=== PATIENT | female | born 1945 | race Caucasian/White ===

== ENCOUNTER 2023-12-15 12:23 | Emergency (ER) | payer MEDICARE, SELFPAY ==
[2023-12-15 12:34] VITALS: BP 158/71; PULSE 107; TEMP 36.8; O2SAT 87; BMI 20.4
[2023-12-15 12:49] VITALS: O2SAT 96
--- NOTE | 2023-12-15 13:21 | XR_ITS ---
The [address] [address] Patient Name: ALVAREZ PICKENS MRN: [id number] date: 1945 Sex: F Assigned Patient Location: ER Current Patient Location: ER Accession/Order Number: [id number] Exam Date: 12/15/2023 13:50 Report Date: 12/15/2023 14:18 At the request of: EDDIE COLE Procedure: XR abdomen 1V EXAMINATION: XR abdomen 1V HISTORY: Left-sided pain, possible constipation COMPARISON: No relevant comparison available. FINDINGS: BOWEL GAS PATTERN: Moderate to large amount stool throughout the bowel. No abnormal dilation or findings to suggest obstruction. Bowel sutures within right pelvis. CALCIFICATIONS: None significant. 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 Prior right hip replacement. XR/XR abdomen 1V IMPRESSION: 1. Moderate stool burden. No acute bowel findings. Electronically authenticated by: ARIANA AGUILAR Date: 12/15/2023 14:18
--- NOTE | 2023-12-15 13:22 | ED.ABDPAIN1 ---
HPI - Abdominal Pain General Chief Complaint: Abdominal Pain Stated Complaint: SIDE PAIN Time Seen by Provider: 12/15/23 12:35 Source: patient and family Mode of arrival: walk-in Limitations: no limitations History of Present Illness HPI narrative: 78-year-old female presented for pain in her abdomen. It is in the extreme left lateral area of the abdomen. She does not have any pain in the left lower quadrant or elsewhere on the abdomen. No trauma dysuria or hematuria. She states she has not had a bowel movement for 3 days. Related Data Home Medications ?Medication ?Instructions ?Recorded ?Confirmed No Known Home Medications 12/15/23 12/15/23 Allergies Allergy/AdvReac Type Severity Reaction Status Date / Time No Known Drug Allergies Allergy Verified 12/15/23 12:37 Review of Systems ROS Narrative A ten point review of systems is negative except as noted above. PFSH PFSH Social History Little interest or pleasure in doing things: not at all Feeling down, depressed, or hopeless: not at all Exam Narrative Exam Narrative: Nurses note and vital signs reviewed and patient is not hypoxic. General: The patient appears well and in no apparent distress. Patient is resting comfortably on cart. Skin: Warm, dry, no pallor noted. There is no rash noted. Head: Normocephalic, atraumatic Eye: Normal conjunctiva, no drainage Ears, Nose, Mouth, and Throat: oral mucosa is moist. Nares patent. Cardiovascular: Regular Rate and Rhythm Respiratory: Patient is in no distress, no accessory muscle use, lungs are clear to auscultation, no wheezing, rales or rhonchi Back: non-tender, no CVA tenderness bilaterally to percussion. GI: Soft and nondistended. Bowel sounds are normal. She has some tenderness just above the iliac crest and a small area and there is no mass in this area. She does not seem to have any tenderness in the left lower quadrant or left upper quadrant Musculoskeletal: The patient has no evidence of calf tenderness, no pitting edema, symmetrical pulses noted bilaterally Neurological: Awake and alert Psychiatric: Cooperative Constitutional Vital Signs, click to edit/add: Last Vital Signs Temp 98.2 F 12/15/23 12:34 Pulse 107 H 12/15/23 12:34 Resp 20 12/15/23 12:34 BP 158/71 H 12/15/23 12:34 Pulse Ox 96 12/15/23 12:49 O2 Del Method Room Air 12/15/23 12:34 O2 Flow Rate 2 12/15/23 12:49 Course Vital Signs Vital signs: Vital Signs Temperature 98.2 F 12/15/23 12:34 Pulse Rate 107 H 12/15/23 12:34 Respiratory Rate 20 12/15/23 12:34 Blood Pressure 158/71 H 12/15/23 12:34 Pulse Oximetry 87 L 12/15/23 12:34 Oxygen Delivery Method Room Air 12/15/23 12:34 Temperature 98.2 F 12/15/23 12:34 Pulse Rate 107 H 12/15/23 12:34 Respiratory Rate 20 12/15/23 12:34 Blood Pressure 158/71 H 12/15/23 12:34 Pulse Oximetry 96 12/15/23 12:49 Oxygen Delivery Method Room Air 12/15/23 12:34 Oxygen Delivery Flow Rate 2 12/15/23 12:49 MDM - Abdominal Pain MDM Narrative Medical decision making narrative: Blood work including WBC is essentially normal. X-ray shows constipation. She was given an enema with some result and feels improved and wants to go home. Show take MiraLAX for constipation. Treatment diagnosis and follow-up were discussed with the patient and her family. Differential Diagnosis Differential diagnosis: Likely abdominal pain, constipation and diverticulitis Lab Data Attestation: I reviewed the patient's lab results. Labs: Lab Results 12/15/23 Range/Units 12:42 WBC 7.7 (4.0-11.0) 10^3/uL RBC 5.02 (4.20-5.40) 10^6/uL Hgb 16.0 (12.0-16.0) g/dL Hct 48.1 H (36.0-48.0) % MCV 95.8 (81.0-99.0) fL MCH 31.9 (26.7-34.0) pg MCHC 33.3 (29.9-35.2) g/dL RDW 14.6 (11.0-15.0) % Plt Count 328 (150-450) 10^3/uL MPV 9.8 (9.5-13.5) fL Neut % (Auto) 68.4 (43.0-75.0) % Lymph % (Auto) 22.0 (20.5-60.0) % Pender % (Auto) 5.7 (1.7-12.0) % Eos % (Auto) 2.9 (0.9-7.0) % Baso % (Auto) 0.9 (0.2-2.0) % Neut # (Auto) 5.3 (1.4-6.5) 10^3/uL Lymph # (Auto) 1.7 (1.2-3.8) 10^3/uL Pender # (Auto) 0.4 (0.3-0.8) 10^3/uL Eos # (Auto) 0.2 (0.0-0.7) 10^3/uL Baso # (Auto) 0.1 (0.0-0.1) 10^3/uL Abs Immat Gran (auto) 0.01 (0.00-0.03) 10^3/uL Imm/Tot Granulo (auto) 0.1 (0.0-0.5) % Sodium 138 (136-145) mmol/L Potassium 4.5 (3.5-5.1) mmol/L Chloride 99 (98-107) mmol/L Carbon Dioxide 33.3 H (21.0-32.0) mmol/L Anion Gap 10.2 BUN 14.0 (7.0-18.0) mg/dL Creatinine 1.00 (0.55-1.02) mg/dL Est GFR ( Amer) >60 (>=60) Est GFR (Non-Af Amer) 53 L (>=60) BUN/Creatinine Ratio 14.0 Glucose 93 (74-106) mg/dL Calcium 11.7 H (8.5-10.1) mg/dL Imaging Data Abdominal x-ray: Radiologist's impression: ITS Impressions Abdomen X-Ray 12/15/23 13:21 IMPRESSION: 1. Moderate stool burden. No acute bowel findings. Electronically authenticated by: ARIANA AGUILAR Date: 12/15/2023 14:18 Discharge Plan Discharge Chief Complaint: Abdominal Pain Clinical Impression: Constipation Patient Disposition: Home, Self-Care Time of Disposition Decision: 15:21 Condition: Good Mode of Transportation: Private Vehicle Prescriptions / Home Meds: No Action No Known Home Medications Print Language: Citizen Of [place] Instructions: Constipation (ED), High Fiber Diet (ED) Additional Instructions: Uapp-eaf-rkeobys MiraLAX for constipation Referrals: Physician,Non-Staff, [Primary Care Provider] - 1 week
[2023-12-15 13:27] LABS: Basophils Absolute Auto 0.1 10^3/uL (0.0-0.1); Basophils Percent Auto 0.9 % (0.2-2.0); Eosinophils Absolute Auto 0.2 10^3/uL (0.0-0.7); Eosinophils Percent Auto 2.9 % (0.9-7.0); Hematocrit 48.1 % (36.0-48.0); Immature Granulocytes Abs Auto 0.01 10^3/uL (0.00-0.03); Immature Granulocytes Pct Auto 0.1 % (0.0-0.5); Lymphocytes Absolute Auto 1.7 10^3/uL (1.2-3.8); Mean Corpuscular HGB Conc 33.3 g/dL (29.9-35.2); Mean Corpuscular Hemoglobin 31.9 pg (26.7-34.0); Mean Corpuscular Volume 95.8 fL (81.0-99.0); Mean Platelet Volume 9.8 fL (9.5-13.5); Monocytes Absolute Auto 0.4 10^3/uL (0.3-0.8); Monocytes Percent Auto 5.7 % (1.7-12.0); Neutrophils Absolute Auto 5.3 10^3/uL (1.4-6.5); Neutrophils Percent Auto 68.4 % (43.0-75.0); Platelet Count 328 10^3/uL (150-450); Red Blood Count 5.02 10^6/uL (4.20-5.40); Red Cell Distribution Width 14.6 % (11.0-15.0); White Blood Count 7.7 10^3/uL (4.0-11.0)
[2023-12-15 13:32] LABS: Anion Gap 10.2; Calcium 11.7 mg/dL (8.5-10.1); Carbon Dioxide 33.3 mmol/L (21.0-32.0); Chloride 99 mmol/L (98-107); Estimated GFR (African America >60 (>=60); Estimated GFR (Non-African Ame 53 (>=60); Glucose 93 mg/dL (74-106); Sodium 138 mmol/L (136-145)
[2023-12-15 13:36] LABS: Potassium 4.5 mmol/L (3.5-5.1)
[2023-12-15 15:42] VITALS: BP 134/90; PULSE 92; O2SAT 94
== END 2023-12-15 15:42 | disposition home or self-care (01) ==
PROVIDERS: Emergency Provider Emergency Medicine
DX: K59.00 Constipation, unspecified (principal)
CPT/HCPCS: 36415; 74018; 80048; 81001; 85025; 99285

== ENCOUNTER 2024-04-21 14:05 | Observation (INO) | payer MEDICARE, SELFPAY ==
[2024-04-21] VITALS (10 sets, daily range): BP systolic 113–129; BP diastolic 60–68; PULSE 68–82; TEMP 36.6–37.2; O2SAT 85–96; BMI 18.9; BMI 14.9
--- NOTE | 2024-04-21 14:12 | CT_ITS ---
The [address] [address] Patient Name: ALVAREZ PICKENS MRN: [facility]:[id number] date: 1945 Sex: F Assigned Patient Location: ED.MAIN Current Patient Location: Accession/Order Number: [id number] Exam Date: 04/21/2024 14:30 Report Date: 04/21/2024 15:44 At the request of: ADEEL PETERS Procedure: CT head/brain wo con EXAM: CT head/brain wo con, CT cervical spine wo con CLINICAL INDICATION: fall COMPARISON: CT neck soft tissues 07/31/2019. CT head 04/10/2010. TECHNIQUE: Axial CT images of the brain and cervical spine were obtained without contrast. Coronal and sagittal reformats were obtained. Dose reduction techniques were achieved by using automated exposure control and/or adjustment of mA and/or kV according to patient size and/or use of iterative reconstruction technique. FINDINGS: No intracranial hemorrhage, extra-axial fluid collection, hydrocephalus, midline shift, or acute large vessel territry infarction. No other mass effect. Patent basal cisterns. Patchy periventricular hypoattenuation is likely on the basis of chronic microvascular angiopathic changes. Moderate symmetric global volume loss without lobar predominance. Commensurate ventricular system caliber prominence. No calvarial fracture. Normal soft tissues. Trace scattered paranasal sinus mucosal thickening. Mastoid air cells are grossly well-aerated. Osseous Mineralization: Diffuse osseous demineralization limits evaluation of fine osseous detail. Trauma: No definite fracture, traumatic malalignment, facet dislocation, or epidural hemorrhage. Alignment: Normal craniocervical and cervicothoracic junctions. Straightening of the physiologic cervical lordosis and mild anterior subluxation of C2 on C3 and C3 on C4 could relate at least in part to patient positioning. Vertebral Body Heights: Maintained. Spondylotic Changes: Multilevel spondylotic changes include varying degrees of intervertebral disc height loss, osteophytic ridging, endplate sclerosis, and facet/uncovertebral joint hypertrophy. These have progressed since 07/31/2019. Soft Tissues: No acute abnormalities. Scattered vascular calcifications. Subcentimeter calcification of the left thyroid lobe. Other: Clear visualized lung apices. Airway is patent. CT/CT head/brain wo con IMPRESSION: 1. No acute intracranial process. 2. No definite cervical spine fracture or traumatic malalignment. Evaluation is limited due to osseous demineralization. 3. Multilevel cervical spondylotic changes have progressed since 07/31/2019. Electronically authenticated by: SUKHJINDER TERESA Date: 04/21/2024 15:44
--- NOTE | 2024-04-21 14:12 | CT_ITS ---
The [address] [address] Patient Name: ALVAREZ PICKENS MRN: [facility]:[id number] date: 1945 Sex: F Assigned Patient Location: ED.MAIN Current Patient Location: Accession/Order Number: [id number] Exam Date: 04/21/2024 14:30 Report Date: 04/21/2024 15:44 At the request of: ADEEL PETERS Procedure: CT cervical spine wo con EXAM: CT head/brain wo con, CT cervical spine wo con CLINICAL INDICATION: fall COMPARISON: CT neck soft tissues 07/31/2019. CT head 04/10/2010. TECHNIQUE: Axial CT images of the brain and cervical spine were obtained without contrast. Coronal and sagittal reformats were obtained. Dose reduction techniques were achieved by using automated exposure control and/or adjustment of mA and/or kV according to patient size and/or use of iterative reconstruction technique. FINDINGS: No intracranial hemorrhage, extra-axial fluid collection, hydrocephalus, midline shift, or acute large vessel territry infarction. No other mass effect. Patent basal cisterns. Patchy periventricular hypoattenuation is likely on the basis of chronic microvascular angiopathic changes. Moderate symmetric global volume loss without lobar predominance. Commensurate ventricular system caliber prominence. No calvarial fracture. Normal soft tissues. Trace scattered paranasal sinus mucosal thickening. Mastoid air cells are grossly well-aerated. Osseous Mineralization: Diffuse osseous demineralization limits evaluation of fine osseous detail. Trauma: No definite fracture, traumatic malalignment, facet dislocation, or epidural hemorrhage. Alignment: Normal craniocervical and cervicothoracic junctions. Straightening of the physiologic cervical lordosis and mild anterior subluxation of C2 on C3 and C3 on C4 could relate at least in part to patient positioning. Vertebral Body Heights: Maintained. Spondylotic Changes: Multilevel spondylotic changes include varying degrees of intervertebral disc height loss, osteophytic ridging, endplate sclerosis, and facet/uncovertebral joint hypertrophy. These have progressed since 07/31/2019. Soft Tissues: No acute abnormalities. Scattered vascular calcifications. Subcentimeter calcification of the left thyroid lobe. Other: Clear visualized lung apices. Airway is patent. CT/CT cervical spine wo con IMPRESSION: 1. No acute intracranial process. 2. No definite cervical spine fracture or traumatic malalignment. Evaluation is limited due to osseous demineralization. 3. Multilevel cervical spondylotic changes have progressed since 07/31/2019. Electronically authenticated by: SUKHJINDER TERESA Date: 04/21/2024 15:44
--- NOTE | 2024-04-21 14:12 | ECG_ITS ---
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
--- OUTSIDE RECORDS SUMMARY | 2024-04-21 14:13 | XMS_ITS | CCD ---
Author Organization [facility] Care Team Providers Care Revolving Inventory Clerk Name Role Phone PATRICIO, DR BAL Knox Attending Unavailabl e REINECK, DR BAL Knox Consulting Unavailabl e REINECK, DR BAL Knox Admitting Unavailabl e AMARILIS, DR ALVA Catalan Primary Care Unavailable Heath, TABLE GAMES SHIFT MANAGER Miriam L Attending Unavailable Heath, TABLE GAMES SHIFT MANAGER Miriam L Attending Unavailable Heath, TABLE GAMES SHIFT MANAGER Miriam L Attending Unavailable Heath, TABLE GAMES SHIFT MANAGER Miriam L Attending Unavailable Heath, TABLE GAMES SHIFT MANAGER Miriam L Attending Unavailable Alexi, MSN, ADVERTISING CONSULTANT-KNIFEMAN Cindy Benitez Attending U navailable Heath, TABLE GAMES SHIFT MANAGER Miriam L Attending Unavailable Heath, TABLE GAMES SHIFT MANAGER Miriam L Attending Unavailable Problems Problem Classification Problem Date Documented Da te Episodic/Chronic Other ear and sense organ disorders (4 sources) Otalgia, left ear; Translations: [OTALGIA LEFT EAR] Onset: 08-07-2020 Episodic Otitis media and related conditions (2 sources) Suppurative otitis media, unspecified, left ear; Translations: [Unspecified perforation of tympanic membrane, left ear] Onset: 08-11-2020 Episodic Screening and history of mental health and substance abuse codes (1 source) Personal history of nicotine dependence; Translations: [PERSONAL HISTORY OF NICOTINE DEPEND] Onset: 08-11-2020 Episodic Results Test Name Value Interpretation Reference Range Facil ity Ambulatory Visit Summaryon 0 04-09-2024 Ambulatory Visit Summary Ambulatory Visit Summary JENNAHONEY SANDRINE Kirti :1945 Visit Date:04/09/2024 Ambulatory Visit Instructions Your Diagnosis History of pharyngeal cancer Body mass index (BMI) less than 16.5 Former smoker, History of smoking greater than 50 pack years Your Care Team Attending Physician - Miriam Kessler Primary Care Physician - Miriam Kessler This Is Your Medications List calcium citrate (calcium (as calcium citrate) 200 mg oral tablet) multivitamin Procedures Performed Removal (05/12/2017). Discharge Vitals Heart Rate (Peripheral) 88 Respiratory Rate 16 Blood Pressure 110/78 Height 152.0 cm Height 60 in Weight 36.40 kg Weight 80.248 lb BMI 15.75 What to do next Scheduled Follow-Up Appointments 2024 11:00 AM EST Where: [address] [address]- Medications What How Much When Instructions Unchanged calcium citrate (calcium (as calcium citrate) 200 mg oral tablet) 2 times a day Unchanged multivitamin Allergies No Known Allergies Problems Ongoing - Any problem that you are currently receiving treatment for. Alcoholism in remission Body mass index (BMI) less than 16.5 Cerumen impaction Cognitive impairment, mild, so stated Former smoker Hearing problem History of lip cancer History of pharyngeal cancer History of smoking greater than 50 pack years Otitis media, unspecified, bilateral Right otitis media Patient Survey You may receive a survey via text or e-mail asking about your office visit. Please share your experience with us by completing your survey. We appreciate your feedback and thank you for choosing us for your care. [facility] Medicine Office/Clini c Noteon 04-09-2024 Family Medicine Office/Clinic Note Family Medicine Office/Clinic Note [facility] Staff Sandrine is a 78 year old female presenting for acute visit Per nurse, pt is having a hard time keeping her oxygen level up Daughter states Insurance nurse came in and stated no long sounds back right lower lobe and front right rales. Pt states she doesn't feel like she is SOB. Daughter says she doesn't look like she is having a hard time breathing but the Spo2 shows 88 and 2 months ago when in [facility] she was in the 80's. Daughter states there will be an aide coming in to home 3 times a week to help out. Should start this week. History of Present Illness pt presents today for low SPO2 and diminishes lung sound during insurance nurse visit Review of Systems PHQ Score Initial Depression Screen Score: 0 SCORE Physical Exam Vitals & Measurements HR: 88(Peripheral) RR: 16 BP: 110/78 HT: 60 in HT: 152.0 cm WT: 36.40 kg WT: 80.248 lb BMI: 15.75 General: alert, no acute distress ENMT: oral mucosa moist, no pharyngeal erythema or exudate Cardiovascular: regular rate and rhythm, normal peripheral perfusion Respiratory: Lungs CTA, respirations non labored diminished lung sound right back lower lobe, no rales noted today Extremities: no deformity, no trauma Neurological: oriented x 4, LOC appropriate for age, CN II-XII intact, motor strength equal & normal bilaterally, speech normal Assessment/Plan 1. Hypoxemia (R09.02: Hypoxemia) Unable to get SP02 above 80%. discussed send her to ER for further evaluation. but she and daughter both say she feels fine. will order some tests and refer to Dr. Hernandez. nebulizer from office provided and instructions given. Ordered: [facility] [place] 2. Mental confusion (R41.0: Disorientation, unspecified) patent presents today after being seen at home by insurance nurse and was told her SPO2 was too low and she had rales and diminished lung sounds. On my assessment she does have diminished lung sounds back right lower lobe. but I do not hear any rales. Pt was diagnosed with pharyngeal and lip cancer about 7 years ago and quit smoking then. Has never had a CT of chest that they are aware of. Spo2 was 80% in office today. Her finger tips were white and very cold to touch. We put a warm rag to warm her finger. I had her take deep breaths and was still only able to get SP02 up to 80. daughter is wondering if this is why she has been so confused lately. pt does not feel short of breath and does not have labored breathing today. Her daughter says she always has mucous that she coughs up. Will order albuterol nebulizer and sent sample of Breztri home with her. Will order LDCT of chest and PFT to be done at [facility]. Will send referral to Dr. Hernandez for further evaluation. Ordered: [facility] [place] 3. History of pharyngeal cancer (Z85.819: Personal history of malignant neoplasm of unspecified site of lip, oral cavity, and pharynx) was treated and is in remission Ordered: [facility] [place] Amb[place] Ref[place] 4. Body mass index (BMI) less than 16.5 (Z68.1: Body mass index [BMI] 19.9 or less, adult) encouraged small frequent meals high in protein Ordered: [facility] [place] Amb[place] Referral 5. Former smoker, (Z87.891: Personal history of nicotine dependence)History of smoking greater than 50 pack years LDCT ordered Ordered: [facility] [place] Ref[place] Follow-up No qualifying data available Problem List/Past Medical History Ongoing Alcoholism in remission Body mass index (BMI) less than 16.5 Cerumen impaction Cognitive impairment, mild, so stated Former smoker Hearing problem History of lip cancer History of pharyngeal cancer History of smoking greater than 50 pack years Hypoxemia Mental confusion Otitis media, unspecified, bilateral Right otitis media Historical No qualifying data Procedure/Surgical History Removal (05/12/2017). Medications calcium (as calcium citrate) 200 mg oral tablet, Oral, BID multivitamin Allergies No Known Allergies Social History Alcohol - Denies Alcohol Use, 02/07/2024 Substance Abuse - Denies Substance Abuse, 02/07/2024 Tobacco - Denies Tobacco Use, 02/07/2024 Former smoker, quit more than 30 days ago Tobacco Use:. Never Smokeless Tobacco Use:. Household tobacco concerns: No. Yes, 02/22/2024 Immunizations Vaccine Date Status Comments influenza virus vaccine, inactivated 12/23/2021 Recorded SARS-CoV-2 (COVID-19) [id number].[id number] 12/23/2021 Recorded 2024-02-06: [id number] SARS-CoV-2 (COVID-19) mRNA BNT-162b2 vax 01/15/2021 Recorded SARS-CoV-2 (COVID-19) mRNA BNT-162b2 vax 04/23/2020 Recorded 2024-02-06: [id number] SARS-CoV-2 (COVID-19) mRNA BNT-162b2 vax 04/03/2020 Recorded 2024-02-06: [id number] influenza virus vaccine, inactivated 01/09/2020 Recorded influenza virus vaccine, inactivated 12/14/2018 Recorded influenza virus vaccine, inactivated 12/09/2018 Recorded influenza virus vaccine, inactivated 11/23/2017 Recorded influenza virus vaccine (more content not included)... [facility] Comment on above: Result Comment: Elec tronically Signed By: Miriam Kessler\.br\Date and Time Signed: 04/09/24 12:32 EST Family Medicine Office/Clini c Noteon 02-22-2024 Family Medicine Office/Clinic Note Family Medicine Office/Clinic Note Chief Complaint Ear Irrigation HPI Staff Pt presents today for possible ear irrigation. History of Present Illness pt presents today for ear irrigation Review of Systems PHQ Score Initial Depression Screen Score: 0 SCORE Physical Exam Vitals & Measurements T: 35.5 ???C(Tympanic) HR: 78(Peripheral) RR: 16 BP: 102/60 SpO2: 94% HT: 60 in HT: 152 cm WT: 38.1 kg WT: 83.996 lb BMI: 16.49 General: alert, no acute distress ENMT: oral mucosa moist, no pharyngeal erythema or exudate Cardiovascular: regular rate and rhythm, normal peripheral perfusion Respiratory: Lungs CTA, respirations non labored Extremities: no deformity, no trauma Neurological: oriented x 4, LOC appropriate for age, CN II-XII intact, motor strength equal & normal bilaterally, speech normal Assessment/Plan 1. Right otitis media (H66.91: Otitis media, unspecified, right ear) on exam right TM is red as well as canal. bloody drainage also noted on external ear. will treat with antibitoics. Ordered: amoxicillin, 500 mg = 1 cap(s), Oral, TID, X 7 day(s), # 21 cap(s), Refills(s) 0, Pharmacy: [id number], 152, cm, 02/22/24 16:34:00 EST, Height/Length Dosing, 38.1, kg, 02/22/24 16:34:00 EST, Weight Dosing 2. Cerumen impaction (H61.20: Impacted cerumen, unspecified ear) pt was instructed to use debrox ear drops. left ear is clear of cerumen now. right ear has some wax but canal and TM are red. will treat with antibiotics. RTC 4 weeks Ordered: amoxicillin, 500 mg = 1 cap(s), Oral, TID, X 7 day(s), # 21 cap(s), Refills(s) 0, Pharmacy: [id number], 152, cm, 02/22/24 16:34:00 EST, Height/Length Dosing, 38.1, kg, 02/22/24 16:34:00 EST, Weight Dosing Follow-up No qualifying data available Problem List/Past Medical History Ongoing Alcoholism in remission Body mass index (BMI) less than 16.5 Cerumen impaction Cognitive impairment, mild, so stated Former smoker Hearing problem History of lip cancer History of pharyngeal cancer Otitis media, unspecified, bilateral Right otitis media Historical No qualifying data Procedure/Surgical History Removal (05/12/2017). Medications amoxicillin 500 mg Cap, 500 mg= 1 cap(s), Oral, TID calcium (as calcium citrate) 200 mg oral tablet, Oral, BID multivitamin Allergies No Known Allergies Social History Alcohol - Denies Alcohol Use, 02/07/2024 Substance Abuse - Denies Substance Abuse, 02/07/2024 Tobacco - Denies Tobacco Use, 02/07/2024 Former smoker, quit more than 30 days ago Tobacco Use:. Never Smokeless Tobacco Use:. Household tobacco concerns: No. Yes, 02/22/2024 Immunizations Vaccine Date Status Comments influenza virus vaccine, inactivated 12/23/2021 Recorded SARS-CoV-2 (COVID-19) [id number].[id number] 12/23/2021 Recorded 2024-02-06: [id number] SARS-CoV-2 (COVID-19) mRNA BNT-162b2 vax 01/15/2021 Recorded SARS-CoV-2 (COVID-19) mRNA BNT-162b2 vax 04/23/2020 Recorded 2024-02-06: [id number] SARS-CoV-2 (COVID-19) mRNA BNT-162b2 vax 04/03/2020 Recorded 2024-02-06: [id number] influenza virus vaccine, inactivated 01/09/2020 Recorded influenza virus vaccine, inactivated 12/14/2018 Recorded influenza virus vaccine, inactivated 12/09/2018 Recorded influenza virus vaccine, inactivated 11/23/2017 Recorded influenza virus vaccine, inactivated 11/18/2017 Recorded influenza virus vaccine, inactivated 01/05/2017 Recorded [facility] Comment on above: Result Comment: Elec tronically Signed By: Miriam Kessler\.br\Date and Time Signed: 02/22/24 17:03 EST Ambulatory Visit Summaryon 1 04-09-2023 Ambulatory Visit Summary Ambulatory Visit Summary SANDRINE PICKENS Kirti :1945 Visit Date:02/07/2024 Ambulatory Visit Instructions Your Diagnosis Encounter for health maintenance examination with abnormal findings Abnormal MMSE Hearing problem Advanced directives, counseling/discussion Body mass index (BMI) less than 16.5 Your Care Team Attending Physician - Miriam Kessler Primary Care Physician - Miriam Kessler This Is Your Medications List calcium citrate (calcium (as calcium citrate) 200 mg oral tablet) multivitamin Procedures Performed Removal (05/12/2017). Discharge Vitals Temperature (Temporal Artery) 36.9 ???C Heart Rate (Peripheral) 86 Respiratory Rate 14 Blood Pressure 130/66 Height 152 cm Height 60 in Weight 37.2 kg Weight 82.012 lb BMI 16.1 What to do next Scheduled Follow-Up Appointments Tuesday 4:40 PM EST With: Miriam Kessler Where: [address] [id number]- 2024 11:00 AM EST With: Where: [address] [id number]- Medications What How Much When Instructions Unchanged calcium citrate (calcium (as calcium citrate) 200 mg oral tablet) 2 times a day Unchanged multivitamin Allergies No Known Allergies Problems Ongoing - Any problem that you are currently receiving treatment for. Alcoholism in remission Body mass index (BMI) less than 16.5 Cognitive impairment, mild, so stated Former smoker Hearing problem History of lip cancer History of pharyngeal cancer Otitis media, unspecified, bilateral Patient Survey You may receive a survey via text or e-mail asking about your office visit. Please share your experience with us by completing your survey. We appreciate your feedback and thank you for choosing us for your care. Education Materials BMI for Adults Body mass index (BMI) is a number found using a person's weight and height. BMI can help tell how much of a person's weight is made up of fat. BMI does not measure body fat directly. It is used instead of tests that directly measure body fat, which can be difficult and expensive. What are BMI measurements used for? BMI is useful to: ??? Find out if your weight puts you at higher risk for medical problems. ??? Help recommend changes, such as in diet and exercise. This can help you reach a healthy weight. BMI screening can be done again to see if these changes are working. How is BMI calculated? Your height and weight are measured. The BMI is found from those numbers. This can be done with U.S. or metric measurements. Note that charts and online BMI calculators are available to help you find your BMI quickly and easily without doing these calculations. To calculate your BMI in U.S. measurements: 1. Measure your weight in pounds (lb). 2. Multiply the number of pounds by 703. ??? So, for an adult who weighs 150 lb, multiply that number by 703: 150 x 703, which equals 105,450. 3. Measure your height in inches. Then multiply that number by itself to get a measurement called inches squared. ??? So, for an adult who is 70 inches tall, the inches squared measurement is 70 inches x 70 inches, which equals 4,900 inches squared. 4. Divide the total from step 2 (number of lb x 703) by the total from step 3 (inches squared): 105,450 ??? 4,900 = 21.5. This is your BMI. To calculate your BMI in metric measurements: 1. Measure your weight in kilograms (kg). ??? For this example, the weight is 70 kg. 2. Measure your height in meters (m). Then multiply that number by itself to get a measurement called meters squared. ??? So, for an adult who is 1.75 m tall, the meters squared measurement is 1.75 m x 1.75 m, which equals 3.1 meters squared. 3. Divide the number of kilograms (your weight) by the meters squared number. In this example: 70 ??? 3.1 = 22.6. This is your BMI. What do the results mean? BMI charts are used to see if you are underweight, normal weight, overweight, or obese. The following guidelines will be used: ??? Underweight: BMI less than 18.5. ??? Normal weight: BMI between 18.5 and 24.9. ??? Overweight: BMI between 25 and 29.9. ??? Obese: BMI of 30 or above. BMI is a tool and cannot diagnose a condition. Talk with your health care provider about what your BMI means for you. Keep these notes in mind: ??? Weight includes fat and muscle. Someone with a muscular build, such as an athlete, may have a BMI that is higher than 24.9. In cases like these, BMI is not a correct measure of body fat. ??? If you have a BMI of 25 or higher, your provider may need to do more testing to find out if excess body fat is the cause. ??? BMI is measured the same way for males and females. Females usually kenyon (more content not included)... [facility] Family Medicine Office/Clini c Noteon 02-08-2024 Family Medicine Office/Clinic Note Family Medicine Office/Clinic Note Chief Complaint Initial t Medicare Wellness Review of Systems PHQ Score Initial Depression Screen Score: 0 SCORE Physical Exam Vitals & Measurements T: 36.9 ???C(Temporal Artery) HR: 86(Peripheral) RR: 14 BP: 130/66 SpO2: 91% HT: 152 cm HT: 60 in WT: 37.2 kg WT: 82.012 lb BMI: 16.1 Assessment/Plan 1. Encounter for health maintenance examination with abnormal findings (Z00.01: Encounter for general adult medical examination with abnormal findings) The patient was given a customized and personalized print out of all the current AHRQ USPSTF???s recommendations for preventative services and all current CDC recommended immunizations, relevant risk recommendations and the following patient brochures were given. Reviewed Medicare Prevention Services checklist. CDC-Falls Prevention and home safety screening reviewed. Patient denies any falls in last 12 months, voices no worry about falling. Exhibits no problems with sitting, standing or ambulation. Patient aware with keeping walk way area free of clutter to prevent tripping and/or falling. [place] Advance Directives reviewed. Documents provided to patient to fill out. See #4. Patient reports some problems with ADL???s and Instrumental ADL???s. Patient reports that daughter in law helps with grocery shopping. Patient is dependant on help from others for transportation as she no longer drives. Cognitive screening completed with memory and clock face drawing. Deficits noted. See #2. Immunization record reviewed, discussed Shingrix vaccine with educational handout and availability. 2 COVID vaccines have been administered, with 2 Boosters received. Allergies and medications reviewed and up to date. No concerns with taking medication as prescribed. Reviewed OTC medications, medication list up to date. Blood tests were reviewed: PCP will discuss with patient what labs are due. No concerns with bowel/ bladder. Colonoscopy screenings no longer performed due to age. Reviewed pain symptoms: Patient denies pain. Reviewed all outside providers that patient follows. Last visit summary notes available in chart and/or have been requested. Patient declines any signs or symptoms of depression at this time. 8 minutes spent with screening and documentation. PHQ2 screening score 0. Patient declines alcohol use. 8 minutes spent with screening and documentation. Audit score 0. Follow up scheduled with PCP, today after AWV visit. AWV has been scheduled, 02/07/2025 Medicare provides yearly screening for alcohol and depression concerns. This is completed during our Medicare wellness visit for those who do not have a current diagnosis of depression or concerns with alcohol use. I spent a total of 17 minutes on this date of service which included preparing to see the patient, face to face patient care, completing clinical documentation, obtaining and/or reviewing separately obtained history, counseling and educating the patient with handouts. Explanations were provided with reviewing questionnaires. AUDIT risk assessment screening completed, risk score (0) with patient denying concerns with use. Completed PHQ-2 risk assessment for depression with risk score (0), negative findings. Patient has been reminded to notify the provider if there would be a change or concerns with symptoms with fear, unable to sleep, worrying too much or feeling down and/or sad with lost of interest with daily activities. Will continue to monitor with screening yearly during Medicare wellness visits. 2. Abnormal MMSE (F99: Mental disorder, not otherwise specified) Patient unable to do clock face correctly and unable to recited any of the 3 memory words. MMSE performed patient score 20. 3. Hearing problem (H91.90: Unspecified hearing loss, unspecified ear) Patient admits to hearing difficulties. Patient does not wear hearing aides. Questions had to be repeated several times during visit. Son is present and helps repeat questions and instructions. Son reports they are going to look into maybe seeing if patient can get hearing aides. 4. Advanced directives, counseling/discussion (Z71.89: Other specified counseling) Spent 18 minutes with patient. An explanation of [employer]ING for end of life reviewed. Discussion included handout Planning for Important Health Care Decisions with explanations regarding different decisions to discuss with their chosen representatives. Explained the role each customer assistance representative would play, encouraged patient to select 2 people with one being the primary and the other for an alternate. Discussed importance of reviewing forms with her family so that they are aware of her decision. This would be the time to implement plans to ensure specific wishes are honored and if there would be questions from the family these could be discussed for a better understanding. Patient does voice understanding that these forms would be effective if the patient is unable to speak, types of medical care and (more content not included)... [facility] Comment on above: Result Comment: Elec tronically Signed By: Miriam Kessler\.br\Date and Time Signed: 02/08/24 14:28 EST\.br\Electronically Co-Signed By: Jacqueline De Santiago\.br\Date and Time Co-Signed: 02/07/24 13:37 EST Family Medicine Office/Clini c Noteon 02-07-2024 Family Medicine Office/Clinic Note Family Medicine Office/Clinic Note HPI Staff Sandrine is a 78 year f/u from otitis media, bilateral txd with cefuroxime 500 mg BID x 7 Referral for hearing screen if she is still having problems History of Present Illness pt presents today for follow up on difficulty hearing. was treating for ear infection at last visit Review of Systems PHQ Score Initial Depression Screen Score: 0 SCORE Physical Exam Vitals & Measurements HR: 86(Peripheral) RR: 14 BP: 130/66 SpO2: 91% HT: 60 in HT: 152.0 cm WT: 37.2 kg WT: 82.012 lb BMI: 16.1 General: alert, no acute distress ENMT: oral mucosa moist, no pharyngeal erythema or exudate Cardiovascular: regular rate and rhythm, normal peripheral perfusion Respiratory: Lungs CTA, respirations non labored Extremities: no deformity, no trauma Neurological: oriented x 4, LOC appropriate for age, CN II-XII intact, motor strength equal & normal bilaterally, speech normal Assessment/Plan 1. Hearing problem (H91.90: Unspecified hearing loss, unspecified ear) pt states the ear pain is gone. still has a little trouble hearing. but that is much improved too. she does have a moderate amount of cerumen in both canals. she will instill Debrox every night for 10 days and return for ear irrigation. 2. Former smoker (Z87.891: Personal history of nicotine dependence) continue not smoking Ordered: Body Mass Index (BMI) documented 3008F Current tobacco non-user 1036F Depression Screening Negative 3352F Influenza immunization status assessed 1030F Most recent diastolic blood pressure <80 mm Hg 3078F Patient screen for fall risk: no falls in last year or 1 fall with no injury in last year 1101F Systolic BP <130 mm Hg (Most Recent) 3074F 3. Body mass index (BMI) less than 16.5 (Z68.1: Body mass index [BMI] 19.9 or less, adult) BMI education Ordered: Body Mass Index (BMI) documented 3008F Current tobacco non-user 1036F Depression Screening Negative 3352F Influenza immunization status assessed 1030F Most recent diastolic blood pressure <80 mm Hg 3078F Patient screen for fall risk: no falls in last year or 1 fall with no injury in last year 1101F Systolic BP <130 mm Hg (Most Recent) 3074F Follow-up No qualifying data available Problem List/Past Medical History Ongoing Alcoholism in remission Body mass index (BMI) less than 16.5 Cognitive impairment, mild, so stated Former smoker Hearing problem History of lip cancer History of pharyngeal cancer Otitis media, unspecified, bilateral Historical No qualifying data Procedure/Surgical History Removal (05/12/2017). Medications calcium (as calcium citrate) 200 mg oral tablet, Oral, BID multivitamin Allergies No Known Allergies Social History Alcohol - Denies Alcohol Use, 02/07/2024 Substance Abuse - Denies Substance Abuse, 02/07/2024 Tobacco - Denies Tobacco Use, 02/07/2024 Former smoker, quit more than 30 days ago Tobacco Use:. Never Smokeless Tobacco Use:., 02/07/2024 Immunizations Vaccine Date Status Comments influenza virus vaccine, inactivated 12/23/2021 Recorded SARS-CoV-2 (COVID-19) [id number] 12/23/2021 Recorded 2024-02-06: TPV75 SARS-CoV-2 (COVID-19) mRNA BNT-162b2 vax 01/15/2021 Recorded SARS-CoV-2 (COVID-19) mRNA BNT-162b2 vax 04/23/2020 Recorded 2024-02-06: TPV75 SARS-CoV-2 (COVID-19) mRNA BNT-162b2 vax 04/03/2020 Recorded 2024-02-06: TPV75 influenza virus vaccine, inactivated 01/09/2020 Recorded influenza virus vaccine, inactivated 12/14/2018 Recorded influenza virus vaccine, inactivated 12/09/2018 Recorded influenza virus vaccine, inactivated 11/23/2017 Recorded influenza virus vaccine, inactivated 11/18/2017 Recorded influenza virus vaccine, inactivated 01/05/2017 Recorded Normal [facility] Comment on above: Result Comment: Elec tronically Signed By: Miriam Kessler\.br\Date and Time Signed: 02/07/24 12:02 EST Family Medicine Office/Clini c Noteon 01-18-2024 Family Medicine Office/Clinic Note Family Medicine Office/Clinic Note Chief Complaint Establish Care HPI Staff Marni is a 78 year old female presenting with establishing care. Acute: Current issues/complaints: Pt is here with son. Concerned with hearing. Pt states her Rt ear is itching & hurts. Concerned with possible infection. Son is stating he would like referral to refund specialist. History of Present Illness pt presents today to establish care, c/o ear pain drainage, difficulty hearing Review of Systems PHQ Score Initial Depression Screen Score: 0 SCORE Physical Exam Vitals & Measurements T: 36.7 ???C(Tympanic) HR: 95(Peripheral) RR: 18 BP: 122/74 SpO2: 97% HT: 60 in HT: 152 cm WT: 37.3 kg WT: 82.06 lb BMI: 16.14 General: alert, no acute distress ENMT: oral mucosa moist, no pharyngeal erythema or exudate, QAMAR TM moderate amount fluid, canals red, crusty dry discharge noted in canal and on outer right ear Cardiovascular: regular rate and rhythm, normal peripheral perfusion Respiratory: Lungs CTA, respirations non labored Extremities: no deformity, no trauma Neurological: oriented x 4, LOC appropriate for age, CN II-XII intact, motor strength equal & normal bilaterally, speech normal Assessment/Plan 1. Otitis media, unspecified, bilateral (H66.93: Otitis media, unspecified, bilateral) will treat with antibiotic. pt will return in a few weeks after treatment to assess ears again. if she is still having trouble with hearing, she would like a referral for a hearing screen. pt will return in a few weeks for AMW visit. she has not been to a doctor since 2018. was recently seen at [facility] for abdominal pain and was found to be constipated and was given and enema and sent home. Ordered: cefuroxime, 500 mg = 1 tab(s), Oral, BID, X 7 day(s), # 14 tab(s), Refills(s) 0, Pharmacy: [id number], 152, cm, 01/18/24 16:06:00 EDT, Height/Length Dosing, 37.3, kg, 01/18/24 16:06:00 EDT, Weight Dosing 2. History of lip cancer, (Z85.819: Personal history of malignant neoplasm of unspecified site of lip, oral cavity, and pharynx)History of pharyngeal cancer Dr. La managed this 4. Cognitive impairment, mild, so stated (G31.84: Mild cognitive impairment of uncertain or unknown etiology) pt is not a good historian and is pleasantly confused. 5. Body mass index (BMI) less than 16.5 (Z68.1: Body mass index [BMI] 19.9 or less, adult) BMI education given Ordered: cefuroxime, 500 mg = 1 tab(s), Oral, BID, X 7 day(s), # 14 tab(s), Refills(s) 0, Pharmacy: [id number], 152, cm, 01/18/24 16:06:00 EDT, Height/Length Dosing, 37.3, kg, 01/18/24 16:06:00 EDT, Weight Dosing 6. Former smoker (Z87.891: Personal history of nicotine dependence) continue not smoking Ordered: cefuroxime, 500 mg = 1 tab(s), Oral, BID, X 7 day(s), # 14 tab(s), Refills(s) 0, Pharmacy: [id number], 152, cm, 01/18/24 16:06:00 EDT, Height/Length Dosing, 37.3, kg, 01/18/24 16:06:00 EDT, Weight Dosing Follow-up No qualifying data available Problem List/Past Medical History Ongoing Alcoholism in remission Body mass index (BMI) less than 16.5 Cognitive impairment, mild, so stated Former smoker History of lip cancer History of pharyngeal cancer Otitis media, unspecified, bilateral Historical No qualifying data Procedure/Surgical History Removal (05/12/2017). Medications calcium (as calcium citrate) 200 mg oral tablet, Oral, BID cefuroxime 500 mg oral tablet, 500 mg= 1 tab(s), Oral, BID multivitamin Allergies No Known Allergies Social History Tobacco Former smoker, quit more than 30 days ago Tobacco Use:. Never Smokeless Tobacco Use:., 01/18/2024 [facility] Comment on above: Result Comment: Elec tronically Signed By: Miriam Kessler\.br\Date and Time Signed: 01/18/24 16:36 EDT Pre-Visit Planningon 024 Pre-Visit Planning Pre-Visit Planning From: Millicent Argueta RN To: Miriam Kessler; Sent: 01/17/2024 10:40:38 EDT Subject: Pre-Visit Planning Due Date/Time: 01/17/2024 10:40:00 EDT Caller Name: SANDRINE PICKENS; Caller Number: Vj , Kirti Dominic Pineda, During a pre-visit planning chart review, I noted the following documentation in the medical record: Current Problem List: none 10/01/2022 [facility] evaluation consult- insomnia 01/20/2023 [facility] consult- Mild cognitive impairment, 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 Drugs and alcohol section on page 2 says no alcohol in past year, tongue cancer, metastasis to head and neck lymph node I understand that this is your first time seeing this patient. If there is anything you would like me to add to problem list please let me know. Please specify with patient if her alcoholism is in remission? -Other (please specify): I can update the problem list with your specified response if you would like. In responding to this request, please exercise your independent professional judgment. The fact that a question is asked does not imply that any particular answer is desired or expected. If you have any questions, please feel free to contact me at extension [phone]. Thank you! Millicent Argueta, JUANN, RN, CCM, CCDS, CCDS-O CDI [facility] [address] [place], [place] [address] P: [phone] F: [phone] [email or web address] Encounters Encounter Date Encounter Type Care Provider Facility Start: 04-09-2024 End: 04-09-2024 ambulatory TABLE GAMES SHIFT MANAGER Miriam L Heath Facility:[facility] [place] k[place]nn Start: 03-28-2024 End: 03-28-2024 ambulatory TABLE GAMES SHIFT MANAGER Miriam L Heath Facility:[facility] [place] katelynn Start: 02-22-2024 End: 02-22-2024 ambulatory TABLE GAMES SHIFT MANAGER Miriam L Heath Facility:[facility] [place] k[place]nn Start: 02-15-2024 ambulatory MSN, ADVERTISING CONSULTANT-KNIFEMAN Cindy Truong Facility: [place] Start: 02-07-2024 End: 02-07-2024 ambulatory TABLE GAMES SHIFT MANAGER Miriam L Heath Facility:[facility] [place] k[place]nn Start: 01-18-2024 End: 01-18-2024 ambulatory TABLE GAMES SHIFT MANAGER Miriam L Heath Facility:[facility] [place] vue Start: 08-07-2020 End: 08-07-[address] BAL CURRY Facility: Plan of Treatment Date Care Activity Detail Author Start: 02-07-2025 ambulatory Ambulatory Facility:[facility] [place] Payers Date Payer Category Payer Private Health Insurance [id number] 2017 Private Health Insurance [id number] 1961 Medicaid [id number] 1959 Unknown [id number] 1945 Unknown [id number] 2.16.84 [id number] 1945 Unknown [id number] 2.16.8 [id number] 1945 Unknown [id number] 2.16.8 [id number] 1945 Unknown [id number] 2.16.8 [id number] 1945 Unknown [id number] 2.16.8 [id number] 1943 Unknown [id number] 2.16.8 [id number] 1945 Unknown [id number] 2.16.8 [id number] 1945 Unknown [id number] 2.16.8 [id number] 1945 Unknown [id number] 2.16.8 [id number] Clinical Note 02-07-2024 Note Date & Type Note Facility 02-07-2024 Note Patient Education Caregiving Fall Prevention in the Home, Adult Falls can cause injuries and can happen to people of all ages. There are many things you can do to make your home safer and to help prevent falls. What actions can I take to prevent falls? General information ??? Use good lighting in all rooms. Make sure to: ? Replace any light bulbs that burn out. ? Turn on the lights in dark areas and use night-lights. ??? Keep items that you use often in [id number] places. Lower the shelves around your home if needed. ??? Move furniture so that there are clear paths around it. ??? Do not use throw rugs or other things on the floor that can make you trip. ??? If any of your floors are uneven, fix them. ??? Add color or contrast paint or tape to clearly doron and help you see: ? Grab bars or handrails. ? First and last steps of staircases. ? Where the edge of each step is. ??? If you use a ladder or stepladder: ? Make sure that it is fully opened. Do not climb a closed ladder. ? Make sure the sides of the ladder are locked in place. ? Have someone hold the ladder while you use it. ??? Know where your pets are as you move through your home. What can I do in the bathroom? Keep the floor dry. Clean up any water on the floor right away. ??? Remove soap buildup in the bathtub or shower. Buildup makes bathtubs and showers slippery. ??? Use non-skid mats or decals on the floor of the bathtub or shower. ??? Attach bath mats securely with double-sided, non-slip rug tape. ??? If you need to sit down in the shower, use a non-slip stool. ??? Install grab bars by the toilet and in the bathtub and shower. Do not use towel bars as grab bars. What can I do in the bedroom? Make sure that you have a light by your bed that is easy to reach. ??? Do not use any sheets or blankets on your bed that hang to the floor. ??? Have a firm chair or bench with side arms that you can use for support when you get dressed. What can I do in the kitchen? Clean up any spills right away. ??? If you need to reach something above you, use a step stool with a grab bar. ??? Keep electrical cords out of the way. ??? Do not use floor korean or wax that makes floors slippery. What can I do with my stairs? Do not leave anything on the stairs. ??? Make sure that you have a light switch at the top and the bottom of the stairs. ??? Make sure that there are handrails on both sides of the stairs. Fix handrails that are broken or loose. ??? Install non-slip stair treads on all your stairs if they do not have carpet. ??? Avoid having throw rugs at the top or bottom of the stairs. ??? Choose a carpet that does not hide the edge of the steps on the stairs. Make sure that the carpet is firmly attached to the stairs. Fix carpet that is loose or worn. What can I do on the outside of my home? Use bright outdoor lighting. ??? Fix the edges of walkways and driveways and fix any cracks. Clear paths of anything that can make you trip, such as tools or rocks. ??? Add color or contrast paint or tape to clearly doron and help you see anything that might make you trip as you walk through a door, such as a raised step or threshold. ??? Trim any bushes or trees on paths to your home. ??? Check to see if handrails are loose or broken and that both sides of all steps have handrails. Install guardrails along the edges of any raised decks and porches. ??? Have leaves, snow, or ice cleared regularly. Use sand, salt, or ice melter on paths if you live where there is ice and snow during the winter. ??? Clean up any spills in your garage right away. This includes grease or oil spills. What other actions can I take? Review your medicines with your doctor. Some medicines can cause dizziness or changes in blood pressure, which increase your risk of falling. ??? Wear shoes that: ? Have a low heel. Do not wear high heels. ? Have rubber bottoms and are closed at the toe. ? Feel good on your feet and fit well. ??? Use tools that help you move around if needed. These include: ? Canes. ? Walkers. ? Scooters. ? Crutches. ??? Ask your doctor what else you can do to help prevent falls. This may include seeing a physical therapist to learn to do exercises to move better and get stronger. Where to find more information ??? Centers for Disease Control and Prevention, [place]: cdc.gov ??? National [place] on Aging: gabby.nih.gov ??? National [place] on Aging: gabby.nih.gov Contact a doctor if: ??? You are afraid of falling at home. ??? You feel weak, drowsy, or dizzy at home. ??? You fall at home. Get help right away if you: ??? Lose consciousness or have trouble moving after a fall. ??? Have a fall that causes a head injury. These symptoms may be an emergency. Get help right away. Call 911. ??? Do not wait to see if the symptoms will go away. ??? Do (more content not included)... [facility] 05-08-2020 Note Date & Type Note Facility 05-08-2020 Note Patient Outreach ([place] [facility]AM[facility]) SANDRINE PICKENS ([id number]) 1945 F Date Time Provider Department 05/08/20 MALKA, XUAN AMIN During your visit today, we recorded the following information about you: Allergies As of Date: 05/08/2020 (No Known Allergies) Date Reviewed: 11/15/2018 Reviewed by: Roxy (Rn) CATHY Luong - Fully Assessed Order(s):SARS-COVID VACCINE 1ST DOSE APPT [[id number]] Order #: [id number] FUTURE Prescriptions as of 05/08/2020 Sig: MAGIC MOUTHWASH Swish and swallow 1 tsp 4 shanti* IBUPROFEN 200 MG TABLET Take 400 mg by mouth every 6 * CALCIUM 300 ORAL Take by mouth. Problem List As Of Date 05/08/2020 Noted Resolved Tongue cancer (HCC) [C02.9] 05/16/2017 Absolute anemia [D64.9] 06/08/2017 Hypokalemia [E87.6] 06/22/2017 Vitamin B12 deficiency anemia due to selective *06/29/2017 Anemia due to antineoplastic chemotherapy [D64.*06/29/2017 Mild protein-calorie malnutrition (HCC) [E44.1] 06/29/2017 More... Letter Text Encounter Status:Closed by AGLOGIC, EmbibeUSER on 05/12/20 [facility] Summary Purpose Family History No Family History Records FoundNo Family History Records FoundNo Family History Records Found Advance Directives No Advanced Directives Records FoundNo Advanced Directives Records FoundNo Advanced Directives Records Found Additional Source Comments INFORMATION SOURCE (unrecogn ized section and content) DATE CREATED AUTHOR 08/14/2020 Amy stanton DATE CREATED AUTHOR AUTHOR'S ORGANIZ ATION 04/24/2021 [facility] DATE CREATED AUTHOR AUTHOR'S ORGANIZ ATION 04/10/2024 [facility] FOR RECORDS PERTAINING TO PATIENTS WHO ARE OR HAVE BEEN ENROLLED IN A CHEMICAL DEPENDENCY/SUBSTANCEABUSE PROGRAM, SOME INFORMATION MAY BE OMITTED. This clinical summary was aggregated from multiple sources. Caution should be exercised in using it in the provision of clinical care. This summary normalizes information from multiple sources, and as a consequence, information in this document may materially change the coding, format and clinical context of patient data. In addition, data may be omitted in some cases. CLINICAL DECISIONS SHOULD BE BASED ON THE PRIMARY CLINICAL RECORDS. [facility] [facility]. provides no warranty or guarantee of the accuracy or completeness of information in this document.
[2024-04-21 14:31] LABS: Basophils Absolute Auto 0.1 10^3/uL (0.0-0.1); Basophils Percent Auto 1.7 % (0.2-2.0); Eosinophils Absolute Auto 0.1 10^3/uL (0.0-0.7); Eosinophils Percent Auto 2.4 % (0.9-7.0); Hemoglobin 13.8 g/dL (12.0-16.0); Immature Granulocytes Abs Auto 0.01 10^3/uL (0.00-0.03); Immature Granulocytes Pct Auto 0.2 % (0.0-0.5); Lymphocytes Absolute Auto 1.1 10^3/uL (1.2-3.8); Lymphocytes Percent Auto 26.2 % (20.5-60.0); Mean Corpuscular HGB Conc 33.7 g/dL (29.9-35.2); Mean Corpuscular Hemoglobin 32.6 pg (26.7-34.0); Mean Corpuscular Volume 96.9 fL (81.0-99.0); Monocytes Absolute Auto 0.4 10^3/uL (0.3-0.8); Monocytes Percent Auto 8.4 % (1.7-12.0); Neutrophils Absolute Auto 2.5 10^3/uL (1.4-6.5); Neutrophils Percent Auto 61.1 % (43.0-75.0); Platelet Count 282 10^3/uL (150-450); Red Blood Count 4.23 10^6/uL (4.20-5.40); Red Cell Distribution Width 14.6 % (11.0-15.0); White Blood Count 4.2 10^3/uL (4.0-11.0)
[2024-04-21 14:45] LABS: INR 0.99; Prothrombin Time 10.5 sec (9.0-11.6)
[2024-04-21 14:52] LABS: Alanine Aminotransferase 15 U/L (14-59); Albumin Level 3.3 g/dL (3.4-5.0); Alkaline Phosphatase 78 U/L (46-116); Anion Gap 11.9; Aspartate Amino Transferase 24 U/L (15-37); BUN Creatinine Ratio 9.8; Bilirubin Total 0.4 mg/dL (0.2-1.0); Calcium 9.3 mg/dL (8.5-10.1); Carbon Dioxide 32.8 mmol/L (21.0-32.0); Chloride 100 mmol/L (98-107); Creatine Kinase 69 U/L (26-192); Estimated GFR (African America 51 (>=60 mL/min/1.73m^2); Estimated GFR (Non-African Ame 42 (>=60 mL/min/1.73m^2); Globulin 3.3 g/dL; Glucose 57 mg/dL (74-106); Potassium 4.7 mmol/L (3.5-5.1); Sodium 140 mmol/L (136-145); Total Protein 6.6 g/dL (6.4-8.2)
[2024-04-21 15:09] LABS: Bilirubin Urine NEGATIVE (NEGATIVE); Blood Urine NEGATIVE (NEGATIVE); Clarity Urine CLEAR (CLEAR); Color Urine LT. YELLOW (YELLOW); Glucose Urine UA NEGATIVE (NEGATIVE); Ketones Urine NEGATIVE (NEGATIVE); Leukocyte Esterase Urine NEGATIVE (NEGATIVE); Nitrite Urine NEGATIVE (NEGATIVE); Protein Urine NEGATIVE (NEG/TRACE); Specific Gravity Urine <=1.005 (1.005-1.025); pH Urine 6.5 (5.0-9.0)
--- NOTE | 2024-04-21 15:09 | XR_ITS ---
The [address] [address] Patient Name: ALVAREZ PICKENS MRN: [id number] date: 1945 Sex: F Assigned Patient Location: ER Current Patient Location: ED.MAIN Accession/Order Number: [id number] Exam Date: 04/21/2024 15:20 Report Date: 04/21/2024 17:33 At the request of: ADEEL PETERS Procedure: XR ribs BI 3V X-RAY RIB SERIES. HISTORY: Pain. COMPARISON: None. TECHNIQUE: 4 views of the bilateral rib cage. FINDINGS: No visualized acute acute rib fracture. There are multiple chronic left rib fractures. No pneumothorax. The lungs are clear. Cardiomegaly. XR/XR ribs BI 3V IMPRESSION: 1. No evidence of acute rib fracture. 2. Multiple chronic left rib fractures. Electronically authenticated by: JAN GOODMAN Date: 04/21/2024 17:33
[2024-04-21 15:10] LABS: Urine Microscopic Indicated NO
--- NOTE | 2024-04-21 16:03 | ED_ITS ---
HPI HPI - General Adult General Chief complaint: Fall Stated complaint: FALL Time Seen by Provider: 04/21/24 14:12 Source: patient and EMR Mode of arrival: ambulance Limitations: no limitations History of Present Illness HPI narrative: The patient is 78 years old who lives in independent living, she is brought to us by the EMS after her family found her in the floor of her apartment and she does not recall if she fell or not, the patient family is worried because she has been deteriorating functionally and they do not think that she can live by herself, the patient denies herself any complain, mentioned that she guided herself to the floor but could not get up after that, The patient use a walker to ambulate , Related Data Home Medications ?Medication ?Instructions ?Recorded ?Confirmed No Known Home Medications 12/15/23 12/15/23 Allergies Allergy/AdvReac Type Severity Reaction Status Date / Time No Known Drug Allergies Allergy Verified 12/15/23 12:37 Opioid HPI Opioid Management Most Recent Opioid Data: No Data to Display Review of Systems ROS Status of ROS 10 or more systems reviewed and unremark able except as noted in history and below PFSH PFSH Social History Little interest or pleasure in doing things: not at all Feeling down, depressed, or hopeless: not at all Exam Narrative Exam Narrative: Nurses notes and vital signs reviewed and patient is not hypoxic. General: Well-appearing and in no apparent distress. Skin: Warm, dry, no pallor noted. No rash. Head: Normocephalic, atraumatic. Neck: Supple, non-tender. Eye: Pupils are equal, round and EOMI. No scleral icterus. Ears, Nose, Mouth, and Throat: TM are clear, no nasal mucosal hypertrophy. Oral mucosa is moist, no posterior oropharynx erythema, uvula is mid-line Cardiovascular: Regular Rate and Rhythm without murmur, gallop or rub. Respiratory: No accessory muscle use or respiratory distress. Lungs are clear to auscultation, no wheezing, rales or rhonchi Chest Wall: It was noted in the posterior aspect of the patient chest wall that she have at least 3 small bruises one of them is old the rest are not, they range in size between 2 to 3 cm oval Back: No midline thoracic or lumbar vertebral tenderness. No CVA tenderness Musculoskeletal: normal ROM, no calf or popliteal tenderness, there is a contusion to the posterior aspect of the left elbow that is healing GI: Abdomen is soft, non-distended. Normal bowel sounds. No masses appreciated. No tenderness to palpation. No rebound, guarding, or rigidity noted. Neurological: A&O x3. No cranial nerve dysfunction observed. . Moves all extremities. Sensation intact., The patient is not able to stand up she is very weak and even assisted shows imbalance and she have to lean on the person helping her Psychiatric: Cooperative and interactive. Normal mood and affect. Constitutional Vital Signs, click to edit/add: Last Vital Signs Temp 98.9 F 04/21/24 14:08 Pulse 79 04/21/24 14:42 Resp 17 04/21/24 14:42 BP 129/66 04/21/24 15:00 Pulse Ox 93 L 04/21/24 14:14 O2 Del Method Room Air 04/21/24 14:08 Course Vital Signs Vital signs: Vital Signs Temperature 98.9 F 04/21/24 14:08 Pulse Rate 81 04/21/24 14:08 Respiratory Rate 18 04/21/24 14:08 Blood Pressure 113/65 04/21/24 14:08 Pulse Oximetry 96 04/21/24 14:08 Oxygen Delivery Method Room Air 04/21/24 14:08 Temperature 98.9 F 04/21/24 14:08 Pulse Rate 79 04/21/24 14:42 Respiratory Rate 17 04/21/24 14:42 Blood Pressure 129/66 04/21/24 15:00 Pulse Oximetry 93 L 04/21/24 14:14 Oxygen Delivery Method Room Air 04/21/24 14:08 Medical Decision Making [facility] Narrative Medical decision making narrative: EKG in the ER showing a sinus rhythm with a heart rate of [address] elevation or depression CBC shows no acute pathology with the patient chemistry showing elevated creatinine at 1.23 and her baseline usually is normal Bicarb also elevated which could be secondary to alkalosis secondary to dehydration The patient blood sugar was 57 it seems that the patient did not eat all day she was provided with apple juice that she took with no difficulty CT of the head showed no acute pathology and CT cervical spine as well When I evaluated the patient balance and gait the patient is extremely deconditi oned and she cannot stand up by herself without falling and by the fact that she have multiple bruises to the back of her chest wall, she definitely needs more care The family at the bedside is concerned about her being at home and I agree that the patient needs more care especially that she is dehydrated and was not able to stand up today and she also have some hypoglycemia that got corrected easily by her eating which point to the fact that she is not eating by herself at home Urinalysis showed no UTI X-ray of the ribs bilaterally is pending but would not change the plan that the patient need to be admitted for further evaluation of her acute kidney injury and dehydration in addition to multiple falls Patient case was discussed with and he agreed to admit the patient for further care Lab Data Labs: Lab Results 04/21/24 04/21/24 Range/Units 14:25 15:00 WBC 4.2 (4.0-11.0) 10^3/uL RBC 4.23 (4.20-5.40) 10^6/uL Hgb 13.8 (12.0-16.0) g/dL Hct 41.0 (36.0-48.0) % MCV 96.9 (81.0-99.0) fL MCH 32.6 (26.7-34.0) pg MCHC 33.7 (29.9-35.2) g/dL RDW 14.6 (11.0-15.0) % Plt Count 282 (150-450) 10^3/uL MPV 9.0 L (9.5-13.5) fL Neut % (Auto) 61.1 (43.0-75.0) % Lymph % (Auto) 26.2 (20.5-60.0) % [place] % (Auto) 8.4 (1.7-12.0) % Eos % (Auto) 2.4 (0.9-7.0) % Baso % (Auto) 1.7 (0.2-2.0) % Neut # (Auto) 2.5 (1.4-6.5) 10^3/uL Lymph # (Auto) 1.1 L (1.2-3.8) 10^3/uL [place] # (Auto) 0.4 (0.3-0.8) 10^3/uL Eos # (Auto) 0.1 (0.0-0.7) 10^3/uL Baso # (Auto) 0.1 (0.0-0.1) 10^3/uL Abs Immat Gran (auto) 0.01 (0.00-0.03) 10^3/uL Imm/Tot Granulo (auto) 0.2 (0.0-0.5) % PT 10.5 (9.0-11.6) sec INR 0.99 Sodium 140 (136-145) mmol/L Potassium 4.7 (3.5-5.1) mmol/L Chloride 100 (98-107) mmol/L Carbon Dioxide 32.8 H (21.0-32.0) mmol/L Anion Gap 11.9 BUN 12.0 (7.0-18.0) mg/dL Creatinine 1.23 H (0.55-1.02) mg/dL Est GFR ( Amer) 51 L (>=60 mL/min/1.73m^2) Est GFR (Non-Af Amer) 42 L (>=60 mL/min/1.73m^2) BUN/Creatinine Ratio 9.8 Glucose 57 L (74-106) mg/dL Calcium 9.3 (8.5-10.1) mg/dL Total Bilirubin 0.4 (0.2-1.0) mg/dL AST 24 (15-37) U/L ALT 15 (14-59) U/L Alkaline Phosphatase 78 (46-116) U/L Total Creatine Kinase 69 (26-192) U/L Total Protein 6.6 (6.4-8.2) g/dL Albumin 3.3 L (3.4-5.0) g/dL Globulin 3.3 g/dL Albumin/Globulin Ratio 1.0 Urine Color Lt. yellow (YELLOW) Urine Clarity Clear (CLEAR) Urine pH 6.5 (5.0-9.0) Ur Specific [place] <=1.005 A (1.005-1.025) Urine Protein Negative (NEG/TRACE) mg/dL Urine Glucose (UA) Negative (NEGATIVE) mg/dL Urine Ketones Negative (NEGATIVE) mg/dL Urine Occult Blood Negative (NEGATIVE) Urine Nitrite Negative (NEGATIVE) Urine Bilirubin Negative (NEGATIVE) Urine Urobilinogen 1.0 (0.2-1.0) EU/dL Ur Leukocyte Esterase Negative (NEGATIVE) Discharge Plan Discharge Chief Complaint: Fall Clinical Impression: Multiple falls, Hypoglycemia, SARI (acute kidney injury), Superficial bruising of chest wall Prescriptions / Home Meds: No Action No Known Home Medications Print Language: Citizen [place] Referrals: Physician,Non-Staff, MD [Primary Care Provider] - 1 week
[2024-04-21 16:21] LABS: Glucometer 105 mg/dL (74-106)
--- OUTSIDE RECORDS SUMMARY | 2024-04-21 17:52 | XMS_ITS | CCD ---
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 Name Role Phone PATRICIO, DR BAL Knox Attending Unavailabl e REINECK, DR BAL Knox Consulting Unavailabl e REINECK, DR BAL Knox Admitting Unavailabl e AMARILIS, DR ALVA Catalan Primary Care Unavailable Heath, CARE COMPANION Miriam L Attending Unavailable Heath, CARE COMPANION Miriam L Attending Unavailable Heath, CARE COMPANION Miriam L Attending Unavailable Heath, CARE COMPANION Miriam L Attending Unavailable Heath, CARE COMPANION Miriam L Attending Unavailable Alexi, MSN, SPIKE MAKER-DISABILITIES CAREGIVER Cindy Benitez Attending U navailable Heath, CARE COMPANION Miriam L Attending Unavailable Heath, CARE COMPANION Miriam L Attending Unavailable Problems Problem Classification [...] Follow-Up Appointments 2024 11:00 AM EST Where: [address] [address]- Medications What How Much When Instructions Unchanged [...] for choosing us for your care. Normal [facility] Medicine Office/Clini c Noteon 04-09-2024 Family Medicine Office/Clinic Note Family Medicine Office/Clinic Note [facility] Staff Sandrine is a 78 year [...] 86 and 2 months ago when in [facility] she was in the 80's. Daughter states [...] from office provided and instructions given. Ordered: [facility] External Ambulatory Referral 2. Mental confusion (R41.0: [...] chest and PFT to be done at [facility]. Will send referral to Dr. Hernandez for further evaluation. Ordered: [facility] External Ambulatory Referral 3. 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 Body mass index (BMI) less than 16.5 (Z68.1: Body mass index [BMI] 19.9 or less, adult) encouraged small frequent meals high in protein Ordered: [facility] External Ambulatory Referral 5. Former smoker, (Z87.891: Personal history of nicotine dependence)History of smoking greater than 50 pack years LDCT ordered Ordered: [facility] External Ambulatory Referral Follow-up No qualifying data [...] virus vaccine, inactivated 12/23/2021 Recorded SARS-CoV-2 (COVID-19) [id number].[id number] 12/23/2021 Recorded 2024-02-06: TPV75 SARS-CoV-2 (COVID-19) mRNA BNT-162b2 vax 01/15/2021 Recorded SARS-CoV-2 (COVID-19) mRNA BNT-162b2 vax 04/23/2020 Recorded 2024-02-06: TPV75 SARS-CoV-2 (COVID-19) mRNA BNT-162b2 vax 04/03/2020 Recorded 2024-02-06: TPV75 influenza virus vaccine, inactivated 01/09/2020 Recorded influenza virus vaccine, inactivated 12/14/2018 Recorded influenza virus vaccine, inactivated 12/09/2018 Recorded influenza virus vaccine, inactivated 11/23/2017 Recorded influenza virus vaccine (more content not included)... Normal [facility] Comment on above: Result Comment: Elec tronically [...] day(s), # 21 cap(s), Refills(s) 0, [id number], 152, cm, 02/22/24 16:34:00 EST, Height/Length [...] day(s), # 21 cap(s), Refills(s) 0, [id number], 152, cm, 02/22/24 16:34:00 EST, Height/Length [...] virus vaccine, inactivated 12/23/2021 Recorded SARS-CoV-2 (COVID-19) [id number].[id number] 12/23/2021 Recorded 2024-02-06: TPV75 SARS-CoV-2 (COVID-19) mRNA [...] influenza virus vaccine, inactivated 01/05/2017 Recorded Normal [facility] Comment on above: Result Comment: Elec tronically [...] 4:40 PM EST With: Miriam Kessler Where: [address] [id number]- 2024 11:00 AM EST With: Where: [address] [id number]- Medications What How Much When Instructions Unchanged [...] kenyon (more content not included)... Normal [facility] Family Medicine Office/Clini c Noteon 02-08-2024 Family [...] of clutter to prevent tripping and/or falling. [place] Advance Directives reviewed. Documents provided to patient [...] their chosen representatives. Explained the role each patient support representative would play, encouraged patient to select [...] care and (more content not included)... Normal [facility] Comment on above: Result Comment: Elec tronically [...] virus vaccine, inactivated 12/23/2021 Recorded SARS-CoV-2 (COVID-19) mRNAMUL.ORD![id number] 12/23/2021 Recorded 2024-02-06: TPV75 SARS-CoV-2 (COVID-19) mRNA [...] virus vaccine, inactivated 01/05/2017 Recorded Normal [facility] Comment on above: Result Comment: Elec tronically [...] is stating he would like referral to ict security specialist. History of Present Illness pt presents [...] doctor since 2018. was recently seen at [facility] for abdominal pain and was found to be constipated and was given and enema and sent home. Ordered: cefuroxime, 500 mg = 1 tab(s), Oral, BID, X 7 day(s), # 14 tab(s), Refills(s) 0, [facility]: [id number], 152, cm, 01/18/24 16:06:00 EDT, Height/Length [...] day(s), # 14 tab(s), Refills(s) 0, Pharmacy: [id number], 152, cm, 01/18/24 16:06:00 EDT, Height/Length Dosing, 37.3, kg, 01/18/24 16:06:00 EDT, Weight Dosing 6. Former smoker (Z87.891: Personal history of nicotine dependence) continue not smoking Ordered: cefuroxime, 500 mg = 1 tab(s), Oral, BID, X 7 day(s), # 14 tab(s), Refills(s) 0, Pharmacy: [id number], 152, cm, 01/18/24 16:06:00 EDT, Height/Length [...] Tobacco Use:. 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 Thank you! Millicent Argueta, JUANN, RN, CCM, CCDS, CCDS-O CDI [employer] Worker [facility] [address] [place], [place] [address] P: [phone] F: [phone] [email or web address] Normal [facility] Encounters Encounter Date Encounter Type Care Provider Facility Start: 04-09-2024 End: 04-09-2024 ambulatory CARE COMPANION Miriam L Heath Facility:[facility] [place] Start: 03-28-2024 End: 03-28-2024 ambulatory CARE COMPANION Miriam L Heath Facility:[facility] [place] Start: 02-22-2024 End: 02-22-2024 ambulatory CARE COMPANION Miriam L Heath Facility:[facility] [place] Start: 02-15-2024 ambulatory MSN, SPIKE MAKER-DISABILITIES CAREGIVER Cindy Truong Facility: [place] Start: 02-07-2024 End: 02-07-2024 ambulatory CARE COMPANION Miriam L Heath Facility:[facility] [place] Start: 01-18-2024 End: 01-18-2024 ambulatory CARE COMPANION Miriam L Heath Facility:[facility] [place] Start: 08-07-2020 End: 08-07-[address] BAL CURRY Facility: Plan of Treatment Date Care Activity Detail Author Start: 02-07-2025 ambulatory Ambulatory Facility:[facility] [place] Payers Date Payer Category Payer Private Health Insurance [id number] 2017 Private Health Insurance [id number] 1959 Medicaid [id number] 1961 Unknown [id number] 1945 Unknown [id number] 2.16.84 [id number] 1945 Unknown [id number] 2.16.8 [id number] 1945 Unknown [id number] 2.16.8 [id number] 1945 Unknown [id number] 2.16.8 [id number] 1945 Unknown [id number] 2.16.8 [id number] 1945 Unknown [id number] 2.16.8 [id number] 1945 Unknown [id number] 2.16.8 [id number] 1945 Unknown [id number] 2.16.8 [id number] 1945 Unknown [id number] 2.16.8 [id number] Clinical Note 02-07-2024 Note Date & Type [...] Keep items that you use often in [id number] places. Lower the shelves around your home [...] the way. ??? Do not use floor latvian or wax that makes floors slippery. What [...] Control and Prevention, STEADI: cdc.gov ??? National [place] on Aging: gabby.nih.gov ??? National [place] on Aging: gabby.nih.gov Contact a doctor if: [...] away. ??? Do (more content not included)... [facility] Clinical Note 05-08-2020 Note Date & Type Note Facility 05-08-2020 Note Patient Outreach ([place] [facility]) SANDRINE PICKENS ([id number]) 1945 F Date Time Provider Department 05/08/20 MALKA, XUAN AMIN During your visit today, we recorded the following information about you: Allergies As of Date: 05/08/2020 (No Known Allergies) Date Reviewed: 11/15/2018 Reviewed by: Roxy (Rn) CATHY Luong - Fully Assessed Order(s):SARS-COVID VACCINE 1ST DOSE APPT [[id number]] Order #: [id number] FUTURE Prescriptions as of 05/08/2020 Sig: MAGIC [...] 06/29/2017 More... Letter Text Encounter Status:Closed by [employer], [employer] on 05/12/20 [facility] Summary Purpose Family History No Family History Records FoundNo Family History Records FoundNo Family History Records Found Advance Directives No Advanced Directives Records FoundNo Advanced Directives Records FoundNo Advanced Directives Records Found Additional Source Comments INFORMATION SOURCE (unrecogn ized section and content) DATE CREATED AUTHOR 08/14/2020 Amy stanton DATE CREATED AUTHOR AUTHOR'S ORGANIZ ATION 04/24/2021 [facility] DATE CREATED AUTHOR AUTHOR'S ORGANIZ ATION 04/10/2024 [facility] FOR RECORDS PERTAINING TO PATIENTS WHO ARE [...] BE BASED ON THE PRIMARY CLINICAL RECORDS. [employer] [facility]. provides no warranty or guarantee of the accuracy or completeness of information in this document.
[2024-04-21] MEDS: 0.9 % SODIUM CHLORIDE 1,000 ML 100 ML IV (18:31)
[2024-04-21 19:46] LABS: Glucometer 85 mg/dL (74-106)
[2024-04-22] VITALS (10 sets, daily range): BP systolic 107–148; BP diastolic 60–78; PULSE 65–87; TEMP 36.4–36.9; O2SAT 90–97
[2024-04-22] MEDS: NYSTATIN 500,000 UNIT/5 ML ORAL.SUSP 500000 UNIT PO ×4 (05:28→21:23)
[2024-04-22] MEDS: 0.9 % SODIUM CHLORIDE 1,000 ML 100 ML IV (05:31)
[2024-04-22 06:23] LABS: Basophils Percent Auto 0.7 % (0.2-2.0); Eosinophils Absolute Auto 0.1 10^3/uL (0.0-0.7); Eosinophils Percent Auto 1.5 % (0.9-7.0); Immature Granulocytes Abs Auto 0.02 10^3/uL (0.00-0.03); Immature Granulocytes Pct Auto 0.4 % (0.0-0.5); Lymphocytes Absolute Auto 0.9 10^3/uL (1.2-3.8); Lymphocytes Percent Auto 16.9 % (20.5-60.0); Mean Corpuscular HGB Conc 32.6 g/dL (29.9-35.2); Mean Corpuscular Hemoglobin 31.5 pg (26.7-34.0); Mean Corpuscular Volume 96.6 fL (81.0-99.0); Mean Platelet Volume 9.5 fL (9.5-13.5); Monocytes Absolute Auto 0.4 10^3/uL (0.3-0.8); Monocytes Percent Auto 7.2 % (1.7-12.0); Neutrophils Percent Auto 73.3 % (43.0-75.0); Platelet Count 245 10^3/uL (150-450); Red Blood Count 4.45 10^6/uL (4.20-5.40); Red Cell Distribution Width 14.6 % (11.0-15.0); White Blood Count 5.5 10^3/uL (4.0-11.0)
[2024-04-22 06:45] LABS: Alanine Aminotransferase 11 U/L (14-59); Albumin Level 2.9 g/dL (3.4-5.0); Alkaline Phosphatase 76 U/L (46-116); Aspartate Amino Transferase 20 U/L (15-37); BUN Creatinine Ratio 11.2; Bilirubin Total 1.1 mg/dL (0.2-1.0); Calcium 8.8 mg/dL (8.5-10.1); Carbon Dioxide 31.2 mmol/L (21.0-32.0); Chloride 105 mmol/L (98-107); Estimated GFR (African America >60 (>=60 mL/min/1.73m^2); Estimated GFR (Non-African Ame >60 (>=60 mL/min/1.73m^2); Glucose 88 mg/dL (74-106); Potassium 4.2 mmol/L (3.5-5.1); Sodium 142 mmol/L (136-145); Total Protein 5.9 g/dL (6.4-8.2)
[2024-04-22] MEDS: NYSTATIN 100,000 UNITS/GRAM CREAM 15 GM TUBE 1 APPLIC TOPICAL ×2 (11:20→21:22)
[2024-04-22] MEDS: ENSURE ORIGINAL 237 ML BOTTLE PO ×2 (11:20→21:19)
--- NOTE | 2024-04-22 11:34 | P.HP_ITS ---
HPI H&P: HPI History of Present Illness Chief complaint: FALL SARI Narrative: 78 y/o female to ER after a fall. Patient lives in independent living facility and family found her on the floor. Unknown how long patient was on floor but she wasn't able to get up. To ER and labs showed SARI and hypoglycemia. No history of DM and not on any daily medication. Family concerned of patient's decreased oral intake and weakness. History of throat cancer and treated with radiation and chemo. Since then problems swallowing and not eating or drinking much. Patient starting to have multiple falls and ER noted bruising on chest and back. UA negative for UTI. X-ray ribs showed multiple old left rib fractures. Admitted for treatment. Started IV fluids and labs improved this am. Nursing noticed coughing while eating and tried puree diet which she tolerated well. Family also reports beginning of dementia. Opioid HPI Opioid Management Most Recent Pain and Opioid Data: Last Pain Scale 0 04/22/24 10:59 04/22/24 Last Pain Assessment 04/22/24 11:00 Review of Systems ROS Constitutional Denies: fever or chills Cardiovascular Denies: chest pain, palpitations or edema Respiratory Denies: shortness of breath, cough or wheezing Gastrointestinal Reports: difficulty swallowing; Denies: abdominal pain, nausea, vomiting or diarrhea Genitourinary Denies: painful urination [facility] Medical History (Updated 04/22/24 @ 11:40 by Cornelio Ibrahim MD) Constipation ?K59.00 - Constipation, unspecified (ICD-10) Mouth cancer ?C06.9 - Malignant neoplasm of mouth, unspecified (ICD-10) Throat cancer ?C14.0 - Malignant neoplasm of pharynx, unspecified (ICD-10) Surgical History (Updated 04/21/24 @ 18:22 by Eloisa Sood) H/O: hysterectomy ?Z90.710 - Acquired absence of both cervix and uterus (ICD-10) Social History Highest level of school completed/degree received: 8th grade Little interest or pleasure in doing things: not at all Feeling down, depressed, or hopeless: not at all Meds Home Medications and Allergies Home Medications ?Medication ?Instructions ?Recorded ?Confirmed ?Type albuterol sulfate 2.5 mg/3 mL 2.5 mg continuous nebulization Q6H 04/22/24 04/22/24 History (0.083 %) solution for nebulization PRN shortness of breath or wheezing Allergies Allergy/AdvReac Type Severity Reaction Status Date / Time No Known Drug Allergies Allergy Verified 12/15/23 12:37 Exam Constitutional Vital Signs, click to edit/add: Last Vital Signs Temp 97.5 F L 04/22/24 06:46 Pulse 65 04/22/24 06:46 Resp 18 04/22/24 06:46 BP 107/65 04/22/24 06:46 Pulse Ox 93 L 04/22/24 06:46 O2 Del Method Room Air 04/22/24 06:46 O2 Flow Rate 2 04/22/24 03:34 Documenting provider has reviewed patient's vital signs: yes Common normals: no apparent distress and alert HENMT Common normals: normocephalic Eye Common normals: PERRL and EOMs intact bilaterally Respiratory Common normals: normal respiratory effort and clear to auscultation bilaterally Cardio Common normals: regular rate, regular rhythm, no gallops, no murmurs and no rub GI Common normals: Normal to inspection, nondistended, normoactive bowel sounds present and non-tender Extremity Common normals: no pedal edema Results Labs Labs: Short CBC 04/21/24 04/22/24 Range/Units 14:25 06:08 WBC 4.2 5.5 (4.0-11.0) 10^3/uL Hgb 13.8 14.0 (12.0-16.0) g/dL Hct 41.0 43.0 (36.0-48.0) % Plt Count 282 245 (150-450) 10^3/uL BMP 04/21/24 04/22/24 14:25 06:08 Sodium 140 142 Potassium 4.7 4.2 Chloride 100 105 Carbon Dioxide 32.8 H 31.2 BUN 12.0 10.0 Creatinine 1.23 H 0.89 Glucose 57 L 88 Calcium 9.3 8.8 Cardiac Enzymes 04/21/24 Range/Units 14:25 Total Creatine Kinase 69 (26-192) U/L Liver Function 04/21/24 04/22/24 Range/Units 14:25 06:08 Total Bilirubin 0.4 1.1 H (0.2-1.0) mg/dL AST 24 20 (15-37) U/L ALT 15 11 L (14-59) U/L Alkaline Phosphatase 78 76 (46-116) U/L Albumin 3.3 L 2.9 L (3.4-5.0) g/dL Urine 04/21/24 Range/Units 15:00 Urine Color Lt. yellow (YELLOW) Urine Clarity Clear (CLEAR) Urine pH 6.5 (5.0-9.0) Ur Specific [place] <=1.005 A (1.005-1.025) Urine Protein Negative (NEG/TRACE) mg/dL Urine Glucose (UA) Negative (NEGATIVE) mg/dL Assessment and Plan Assessment and Plan (1) SARI (acute kidney injury): (2) Hypoglycemia: (3) Generalized weakness: (4) Protein-calorie malnutrition, severe: (5) Dysphagia: Qualifiers: Dysphagia type: unspecified Qualified Code(s): R13.10 - Dysphagia, unspecified (6) Radiation therapy complication: Qualifiers: Encounter type: sequela Qualified Code(s): T66.XXXS - Radiation sickness, unspecified, sequela (7) History of throat cancer: (8) Superficial bruising of chest wall: Qualifiers: Encounter type: initial encounter Laterality: unspecified laterality Qualified Code(s): S20.219A - Contusion of unspecified front wall of thorax, initial encounter (9) Multiple falls: (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 Poor oral intake and BMI only 14.9 with low protein on labs indicating severe PCM. Consult speech therapy to assess swallowing and consult dietary. Low BS likely related to poor oral intake and improved with IV fluids. Saline lock IV. Start PT/OT for weakness. Consult social media content specialist and likely will need SNF after discharge.
[2024-04-22 13:21] LABS: Glucometer 109 mg/dL (74-106)
[2024-04-22 15:55] LABS: Glucometer 67 mg/dL (74-106)
[2024-04-22 19:40] LABS: Glucometer 97 mg/dL (74-106)
[2024-04-23] VITALS (7 sets, daily range): BP systolic 101–150; BP diastolic 60–76; PULSE 70–74; TEMP 36.3–36.8; O2SAT 90–94
--- NOTE | 2024-04-23 05:00 | XR_ITS ---
The [address] [address] Patient Name: ALVAREZ PICKENS MRN: [id number] date: 1945 Sex: F Assigned Patient Location: Current Patient Location: Accession/Order Number: [id number] Exam Date: 04/23/2024 06:20 Report Date: 04/23/2024 08:38 At the request of: MARGARITA CALDERON Procedure: XR chest 1V EXAMINATION: XR chest 1V HISTORY: hypoxia, dysphagia, rule out aspiration pneumonia COMPARISON: No relevant comparison available. FINDINGS: LUNGS: Mild haziness and stranding within right lung base. VASCULATURE: No increased pulmonary vasculature. PLEURA: No pneumothorax, effusion, or pleural thickening. CARDIAC: No cardiomegaly or cardiac silhouette abnormality. MEDIASTINUM: No visible mass or adenopathy. BONES: Multiple old healed left rib fractures. Degenerative changes of the glenohumeral joints. OTHER: Negative. XR/XR chest 1V IMPRESSION: 1. New mild opacities within right lung base. This would be compatible with aspiration pneumonitis. Considerations also given to atelectasis and pneumonia. Electronically authenticated by: ARIANA AGUILAR Date: 04/23/2024 08:38
[2024-04-23 05:36] LABS: Basophils Percent Auto 0.5 % (0.2-2.0); Eosinophils Absolute Auto 0.2 10^3/uL (0.0-0.7); Eosinophils Percent Auto 3.5 % (0.9-7.0); Hematocrit 40.9 % (36.0-48.0); Hemoglobin 13.4 g/dL (12.0-16.0); Immature Granulocytes Abs Auto 0.02 10^3/uL (0.00-0.03); Immature Granulocytes Pct Auto 0.3 % (0.0-0.5); Lymphocytes Absolute Auto 0.6 10^3/uL (1.2-3.8); Lymphocytes Percent Auto 11.1 % (20.5-60.0); Mean Corpuscular HGB Conc 32.8 g/dL (29.9-35.2); Mean Corpuscular Hemoglobin 32.1 pg (26.7-34.0); Mean Corpuscular Volume 98.1 fL (81.0-99.0); Mean Platelet Volume 9.5 fL (9.5-13.5); Monocytes Absolute Auto 0.4 10^3/uL (0.3-0.8); Monocytes Percent Auto 6.6 % (1.7-12.0); Neutrophils Absolute Auto 4.5 10^3/uL (1.4-6.5); Platelet Count 219 10^3/uL (150-450); Red Blood Count 4.17 10^6/uL (4.20-5.40); Red Cell Distribution Width 14.7 % (11.0-15.0); White Blood Count 5.8 10^3/uL (4.0-11.0)
[2024-04-23 05:59] LABS: Alanine Aminotransferase 14 U/L (14-59); Albumin Globulin Ratio 0.9; Albumin Level 2.7 g/dL (3.4-5.0); Alkaline Phosphatase 71 U/L (46-116); Anion Gap 6.9; Aspartate Amino Transferase 19 U/L (15-37); Bilirubin Total 0.7 mg/dL (0.2-1.0); Carbon Dioxide 33.9 mmol/L (21.0-32.0); Chloride 107 mmol/L (98-107); Estimated GFR (African America >60 (>=60 mL/min/1.73m^2); Estimated GFR (Non-African Ame >60 (>=60 mL/min/1.73m^2); Globulin 2.9 g/dL; Glucose 77 mg/dL (74-106); Potassium 3.8 mmol/L (3.5-5.1); Sodium 144 mmol/L (136-145); Total Protein 5.6 g/dL (6.4-8.2)
--- OUTSIDE RECORDS SUMMARY | 2024-04-23 06:08 | XMS_ITS | CCD ---
Author Organization [facility] Care Team Providers Care Insurance Policy Issue Clerk Name Role Phone PATRICIO, DR BAL Knox Attending Unavailabl e REINECK, DR BAL Knox Consulting Unavailabl e REINJENI, DR BAL Knox Admitting Unavailabl e AMARILIS, DR ALVA Catalan Primary Care Unavailable Heath, TELESCOPE MAINTENANCE Miriam L Attending Unavailable Heath, TELESCOPE MAINTENANCE Miriam L Attending Unavailable Heath, TELESCOPE MAINTENANCE Miriam L Attending Unavailable Heath, TELESCOPE MAINTENANCE Miriam L Attending Unavailable Heath, TELESCOPE MAINTENANCE Miriam L Attending Unavailable Alexi, MSN, FIRE AND EXPLOSION INVESTIGATOR-TOLL LINE REPAIRER Cindy Benitez Attending U navailable Heath, TELESCOPE MAINTENANCE Miriam L Attending Unavailable Heath, TELESCOPE MAINTENANCE Miriam L Attending Unavailable Problems Problem Classification [...] Your Care Team Attending Physician - Miriam Kesslre Primary Care Physician - Miriam Kessler This [...] Follow-Up Appointments 2024 11:00 AM EST Where: [address] [address]- Medications What How Much When Instructions Unchanged [...] care. Normal [facility] Medicine Office/Clini c Noteon 04-09-2024 Family Medicine Office/Clinic Note Family Medicine Office/Clinic Note [facility] Staff Sandrine is a 78 year [...] 86 and 2 months ago when in [facility] she was in the 80's. Daughter [...] from office provided and instructions given. Or[place] [facility] [place] 2. Mental confusion (R41.0: [...] chest and PFT to be done at [facility]. Will send referral to Dr. Hernandez for further evaluation. Ordered: [facility] [place] 3. 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 Body mass index (BMI) less than 16.5 (Z68.1: Body mass index [BMI] 19.9 or less, adult) encouraged small frequent meals high in protein Ordered: [facility] [place] 5. Former smoker, (Z87.891: Personal history of nicotine dependence)History of smoking greater than 50 pack years LDCT ordered Ordered: [facility] [place] Ref[place] Follow-up No qualifying data [...] virus vaccine, inactivated 12/23/2021 Recorded SARS-CoV-2 (COVID-19) [id number].[id number] 12/23/2021 Recorded 2024-02-06: TPV75 SARS-CoV-2 (COVID-19) mRNA BNT-162b2 vax 01/15/2021 Recorded SARS-CoV-2 (COVID-19) mRNA BNT-162b2 vax 04/23/2020 Recorded 2024-02-06: TPV75 SARS-CoV-2 (COVID-19) mRNA BNT-162b2 vax 04/03/2020 Recorded 2024-02-06: TPV75 influenza virus vaccine, inactivated 01/09/2020 Recorded influenza virus vaccine, inactivated 12/14/2018 Recorded influenza virus vaccine, inactivated 12/09/2018 Recorded influenza virus vaccine, inactivated 11/23/2017 Recorded influenza virus vaccine (more content not included)... Normal [facility] Comment on above: Result Comment: [...] day(s), # 21 cap(s), Refills(s) 0, Pharmacy: [id number], 152, cm, 02/22/24 16:34:00 EST, Height/Length [...] day(s), # 21 cap(s), Refills(s) 0, Pharmacy: [id number], 152, cm, 02/22/24 16:34:00 EST, Height/Length [...] virus vaccine, inactivated 12/23/2021 Recorded SARS-CoV-2 (COVID-19) mRNAMUL.ORD![id number] 12/23/2021 Recorded 2024-02-06: TPV75 SARS-CoV-2 (COVID-19) mRNA [...] influenza virus vaccine, inactivated 01/05/2017 Recorded Normal [facility] Comment on above: Result Comment: [...] 4:40 PM EST With: Miriam Kessler Where: [address] [id number]- 2024 11:00 AM EST With: Where: [address] [id number]- Medications What How Much When Instructions Unchanged [...] of clutter to prevent tripping and/or falling. [place] Advance Directives reviewed. Documents provided to patient [...] their chosen representatives. Explained the role each client account representative would play, encouraged patient to select [...] care and (more content not included)... Normal [facility] Comment on above: Result Comment: [...] virus vaccine, inactivated 12/23/2021 Recorded SARS-CoV-2 (COVID-19) mRNAMUL.ORD![id number] 12/23/2021 Recorded 2024-02-06: TPV75 SARS-CoV-2 (COVID-19) mRNA [...] is stating he would like referral to shearing machine operator. History of Present Illness pt presents today [...] doctor since 2018. was recently seen at [facility] for abdominal pain and was found to be constipated and was given and enema and sent home. Ordered: cefuroxime, 500 mg = 1 tab(s), Oral, BID, X 7 day(s), # 14 tab(s), Refills(s) 0, Pharmacy: [id number], 152, cm, 01/18/24 16:06:00 EDT, Height/Length [...] day(s), # 14 tab(s), Refills(s) 0, Pharmacy: [id number], 152, cm, 01/18/24 16:06:00 EDT, Height/Length Dosing, 37.3, kg, 01/18/24 16:06:00 EDT, Weight Dosing 6. Former smoker (Z87.891: Personal history of nicotine dependence) continue not smoking Ordered: cefuroxime, 500 mg = 1 tab(s), Oral, BID, X 7 day(s), # 14 tab(s), Refills(s) 0, Pharmacy: [id number], 152, cm, 01/18/24 16:06:00 EDT, Height/Length [...] Tobacco Use:. 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 Thank you! Millicent Argueta, JUANN, RN, CCM, CCDS, CCDS-O CDI Formal Service Waiter [facility] [address] [place], [place] [address] P: [phone] F: [phone] [email or web address] Normal [facility] Encounters Encounter Date Encounter Type Care Provider Facility Start: 04-09-2024 End: 04-09-2024 ambulatory TELESCOPE MAINTENANCE Miriam L Heath Facility:[facility] katelynn Start: 03-28-2024 End: 03-28-2024 ambulatory TELESCOPE MAINTENANCE Miriam L Heath Facility:[facility] katelynn Start: 02-22-2024 End: 02-22-2024 ambulatory TELESCOPE MAINTENANCE Miriam L Heath Facility:[facility] katelynn Start: 02-15-2024 ambulatory MSN, FIRE AND EXPLOSION INVESTIGATOR-TOLL LINE REPAIRER Cindy Truong Facility: [facility] Start: 02-07-2024 End: 02-07-2024 ambulatory TELESCOPE MAINTENANCE Miriam L Heath Facility:[facility] katelynn Start: 01-18-2024 End: 01-18-2024 ambulatory TELESCOPE MAINTENANCE Miriam L Heath Facility:[facility] vue Start: 08-07-2020 End: 08-07-[address] BAL CURRY Facility: Plan of Treatment Date Care Activity Detail Author Start: 02-07-2025 ambulatory Ambulatory Facility:[facility] Payers Date Payer Category Payer Private Health Insurance 101 [id number] 2017 Private Health Insurance [id number] 1961 Medicaid [id number] 1961 Unknown [id number] 1945 Unknown [id number] 2.16.84 [id number] 1945 Unknown [id number] 2.16.8 [id number] 1943 Unknown [id number] 2.16.8 [id number] 1943 Unknown [id number] 2.16.8 [id number] 1943 Unknown [id number] 2.16.8 [id number] 1943 Unknown [id number] 2.16.8 [id number] 1943 Unknown [id number] 2.16.8 [id number] 1943 Unknown [id number] 2.16.8 [id number] 1943 Unknown [id number] 2.16.8 [id number] Clinical Note 02-07-2024 Note Date & Type [...] Keep items that you use often in [id number]-[id number] places. Lower the shelves around your home [...] the way. ??? Do not use floor romanian or wax that makes floors slippery. What [...] Control and Prevention, [place]: cdc.gov ??? National [place] on Aging: gabby.nih.gov ??? National [place] on Aging: gabby.nih.gov Contact a doctor if: [...] away. ??? Do (more content not included)... [facility] Clinical Note 05-08-2020 Note Date & Type Note Facility 05-08-2020 Note Patient Outreach ([facility]) SANDRINE PICKENS ([id number]) 1945 F Date Time Provider Department 05/08/20 MALKA, XUAN AMIN During your visit today, we recorded the following information about you: Allergies As of Date: 05/08/2020 (No Known Allergies) Date Reviewed: 11/15/2018 Reviewed by: Roxy (Rn) CATHY Luong - Fully Assessed Order(s):SARS-COVID VACCINE 1ST DOSE APPT [[id number]] Order #: [id number] FUTURE Prescriptions as of 05/08/2020 Sig: MAGIC [...] 06/29/2017 More... Letter Text Encounter Status:Closed by INNFOCUS, Social InsightUSER on 05/12/20 [facility] Summary Purpose Family History No Family History Records FoundNo Family History Records FoundNo Family History Records Found Advance Directives No Advanced Directives Records FoundNo Advanced Directives Records FoundNo Advanced Directives Records Found Additional Source Comments INFORMATION SOURCE (unrecogn ized section and content) DATE CREATED AUTHOR 08/14/2020 Amy stanton DATE CREATED AUTHOR AUTHOR'S ORGANIZ ATION 04/24/2021 [facility] DATE CREATED AUTHOR AUTHOR'S ORGANIZ ATION 04/10/2024 [facility] FOR RECORDS PERTAINING TO PATIENTS WHO [...] BE BASED ON THE PRIMARY CLINICAL RECORDS. [facility]. provides no warranty or guarantee of the accuracy or completeness of information in this document.
[2024-04-23] MEDS: NYSTATIN 500,000 UNIT/5 ML ORAL.SUSP 500000 UNIT PO ×4 (07:43→21:16)
--- NOTE | 2024-04-23 08:45 | CM.NOTE ---
Medicare Outpatient Observation Notice discussed with pt, pt verbalizes understanding and signs paper. Original given to pt and copy placed on pt's chart.
--- NOTE | 2024-04-23 08:56 | PM.DS1 ---
DS: Providers Provider Date of admission: 04/21/24 17:30 Primary care physician: Non-Staff Physician, Consults: 04/21/24 Consult to Dietitian Routine Reason for consultation: weight loss, cachexia 04/21/24 17:50 Consult to Quality Control Technician Routine Has provider been notified: No Reason for consult:: Home Health 04/21/24 17:51 Occupational Therapy Eval and Treat Routine Reason for consultation: Weakness Physical Therapy Eval and Treat Routine Reason for consultation: Weakness 04/22/24 11:43 Consult to Dietitian Routine Reason for consultation: PCM Speech Therapy Eval and Treat Routine Reason for consultation: dysphagia, history of radiation and throat cancer DS: Diagnosis Discharge Diagnosis (1) SARI (acute kidney injury): (2) Hypoglycemia: (3) Generalized weakness: (4) Protein-calorie malnutrition, severe: (5) Dysphagia: Qualifiers: Dysphagia type: unspecified Qualified Code(s): R13.10 - Dysphagia, unspecified (6) Radiation therapy complication: Qualifiers: Encounter type: sequela Qualified Code(s): T66.XXXS - Radiation sickness, unspecified, sequela (7) History of throat cancer: (8) Superficial bruising of chest wall: Qualifiers: Encounter type: initial encounter Laterality: unspecified laterality Qualified Code(s): S20.219A - Contusion of unspecified front wall of thorax, initial encounter (9) Multiple falls: (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: DS: Summary Time Spent with Patient Time attestation: Total time spent providing and/or coordinating discharge services: Exam Constitutional Vital Signs, click to edit/add: Last Vital Signs Temp 97.6 F 04/23/24 07:33 Pulse 72 04/23/24 07:33 Resp 18 04/23/24 08:00 BP 121/73 04/23/24 07:33 Pulse Ox 91 L 04/23/24 07:33 O2 Del Method Room Air 04/23/24 07:33 O2 Flow Rate 1.5 04/22/24 13:18 DS: Data Data Completed and Pending Labs on day of discharge: Labs from last 24 hours 04/23/24 04/22/24 04/22/24 05:13 19:29 15:54 WBC 5.8 RBC 4.17 L Hgb 13.4 Hct 40.9 MCV 98.1 MCH 32.1 MCHC 32.8 RDW 14.7 Plt Count 219 MPV 9.5 Neut % (Auto) 78.0 H Lymph % (Auto) 11.1 L [place] % (Auto) 6.6 Eos % (Auto) 3.5 Baso % (Auto) 0.5 Neut # (Auto) 4.5 Lymph # (Auto) 0.6 L [place] # (Auto) 0.4 Eos # (Auto) 0.2 Baso # (Auto) 0.0 Abs Immat Gran (auto) 0.02 Imm/Tot Granulo (auto) 0.3 Sodium 144 Potassium 3.8 Chloride 107 Carbon Dioxide 33.9 H Anion Gap 6.9 BUN 8.0 Creatinine 0.89 Est GFR ( Amer) >60 Est GFR (Non-Af Amer) >60 BUN/Creatinine Ratio 9.0 Glucose 77 Calcium 9.0 Total Bilirubin 0.7 AST 19 ALT 14 Alkaline Phosphatase 71 Total Protein 5.6 L Albumin 2.7 L Globulin 2.9 Albumin/Globulin Ratio 0.9 POC Glucose 97 67 L 04/22/24 13:17 WBC RBC Hgb Hct MCV MCH MCHC RDW Plt Count MPV Neut % (Auto) Lymph % (Auto) [place] % (Auto) Eos % (Auto) Baso % (Auto) Neut # (Auto) Lymph # (Auto) [place] # (Auto) Eos # (Auto) Baso # (Auto) Abs Immat Gran (auto) Imm/Tot Granulo (auto) Sodium Potassium Chloride Carbon Dioxide Anion Gap BUN Creatinine Est GFR ( Amer) Est GFR (Non-Af Amer) BUN/Creatinine Ratio Glucose Calcium Total Bilirubin AST ALT Alkaline Phosphatase Total Protein Albumin Globulin Albumin/Globulin Ratio POC Glucose 109 H Discharge Plan Discharge Discharge Medications: No Action albuterol sulfate 2.5 mg /3 mL (0.083 %) solution for nebulization 2.5 mg continuous nebulization Q6H PRN (Reason: shortness of breath or wheezing) Print Language: Scottish
[2024-04-23] MEDS: ENSURE ORIGINAL 237 ML BOTTLE PO ×2 (10:09→21:16)
[2024-04-23] MEDS: NYSTATIN 100,000 UNITS/GRAM CREAM 15 GM TUBE 1 APPLIC TOPICAL ×2 (10:09→21:16)
--- NOTE | 2024-04-23 10:26 | SWNOTE1 ---
SW reviewed therapy notes and SNF is recommended. SW to speak with pt and family.
[2024-04-23] MEDS: ONDANSETRON 4 MG RAPDIS TABLET PO (10:30)
[2024-04-23 11:50] LABS: Glucometer 104 mg/dL (74-106)
--- NOTE | 2024-04-23 11:56 | CM.NOTE ---
Rounds made with Dr. Dawson, discussed plan of care with pt and lab work. PT recommending skilled therapy at discharge, pt unsure at this time. Pt would like to speak with her daughter. SW updated and will talk with pt.
--- NOTE | 2024-04-23 13:08 | SWNOTE1 ---
BOB met with pt, daughter, and son in the room. SW spoke with pt about the recommendations of patient going to rehab for a short term rehab stay. Pt spoke about feeling pretty good and that she will do whatever she has to do. SW explained that it would be a short term rehab stay. Pt voiced she will go in and out. SW explained she would stay at the facility until she is stronger. Family requested to speak with SW in private. SW let them know with pt's permission. SW did ask pt where she was at? Pt did voiced she was at the [facility]. SW asked the year, pt voiced she honestly did not know now that it changed. SW asked permission to speak with pt's children. She stated, you are going to anyways, so yes. BOB met with pt's son and daughter in chap. They voiced concerns about her returning home to [facility]. Both son and daughter feel she is not safe to return home and they wished they had POA. They feel she needs to be in AL or halfway after rehab. The son voiced he does not know how she could go home and be released with the falls she had and the espino she has on her body. Daughter voiced she does have Medicaid passport waiver program and they were supposed to be meeting her today. BOB advised that SW will call passport and speak to rn case management. Pt's son did ask about calling APS. SW advised that they can call and make a report and this will allow for them to voice there safety concerns for her returning home. Pt's family will be calling APS. Pt's daughter does work at [employer] in [place]. Daughter and son in agreement with pt going to [facility] for rehab to start. BOB did advise that [facility] sometimes does not have halfway or AL beds available under Medicaid as they have limited Medicaid beds. Daughter voices that she is aware of this. They would like SW to call and speak with Jc to see about beds. BOB called Jc Wills in meeting. She stated to send it over and they will review. Referral sent to [facility]. Referral included face sheet, ED note, H&P, provider notes, case management report, nursing notes, diagnostic imaging, med list, and PT/OT notes.
--- NOTE | 2024-04-23 13:19 | PM.PN ---
Progress Note: Subjective Subjective Interval history: Patient had a speech evaluation today, and recommendation for ground meats, and nectar thick fluids. Patient reports she is amendable to this. Overall she has no complaints today. She has been getting up using her walker with assistance. She has no concerns or complaints at this time. Exam Narrative Exam Narrative: General: Patient is alert, and oriented to person, place and time with normal affect, proper hygiene Skin: no visible rashes, or ulcers Head: atraumatic, acephalic Eyes: PERRLA, no nystagmus present, conjunctiva clear, no scleral icterus Ears: diminished gross auditory acuity Neck: no masses palpated, normal thyroid, no JVD or audible carotid bruits Heart: Normal rate and rhythm, no murmurs/rubs/gallops Lungs: no audible wheezes, crackles and normal breath sounds all lung gaitan Abdomen: Normal audible bowel sounds, no distension, No palpable masses, no organomegaly, no rebound/guarding/ or rigidity Musculoskeletal: no swelling bilateral lower extremities Neuro: CN II-X grossly intact Constitutional Vital Signs, click to edit/add: Last Vital Signs Temp 97.8 F 04/23/24 12:00 Pulse 72 04/23/24 12:00 Resp 18 04/23/24 12:00 BP 126/70 04/23/24 12:00 Pulse Ox 94 L 04/23/24 12:00 O2 Del Method Room Air 04/23/24 12:00 O2 Flow Rate 1.5 04/22/24 13:18 Progress Note: Objective Labs Labs: Short CBC 04/23/24 Range/Units 05:13 WBC 5.8 (4.0-11.0) 10^3/uL Hgb 13.4 (12.0-16.0) g/dL Hct 40.9 (36.0-48.0) % Plt Count 219 (150-450) 10^3/uL BMP 04/23/24 05:13 Sodium 144 Potassium 3.8 Chloride 107 Carbon Dioxide 33.9 H BUN 8.0 Creatinine 0.89 Glucose 77 Calcium 9.0 Liver Function 04/23/24 Range/Units 05:13 Total Bilirubin 0.7 (0.2-1.0) mg/dL AST 19 (15-37) U/L ALT 14 (14-59) U/L Alkaline Phosphatase 71 (46-116) U/L Albumin 2.7 L (3.4-5.0) g/dL Progress Note: A&P Assessment and Plan (1) SARI (acute kidney injury): Assessment and Plan: resolved with IVF. Cr was 0.89, BUN 8 (2) Hypoglycemia: Assessment and Plan: resolved with addition of ensure. (3) Generalized weakness: Assessment and Plan: improving. PT/OT evaluations suggests skilled for rehab, awaiting precert (4) Protein-calorie malnutrition, severe: Assessment and Plan: continue ENSURE (5) Dysphagia: Assessment and Plan: follow speech recommendations Qualifiers: Dysphagia type: unspecified Qualified Code(s): R13.10 - Dysphagia, unspecified (6) Senile dementia: Plan Patient is a full code Patient is in observation but is awaiting precert for group home facility.
--- NOTE | 2024-04-23 13:19 | SWNOTE1 ---
SW updated patient as well and she does remember going to [facility] in past and she voiced she liked it there.
--- NOTE | 2024-04-23 15:28 | SWNOTE1 ---
BOB called [facility] to speak with Jc. Bethanie answered phone and she will have Jc call BOB back.
--- NOTE | 2024-04-23 15:40 | SWNOTE1 ---
[facility] does not have a bed for patient. BOB called and spoke to pt's daughter, Lisa. Lisa stated she did speak with [facility] earlier and she did not think they had a bed. would like BOB to look in to [facility]. BOB reached out to Cherise and she thinks they have a bed opening tomorrow. Referral sent to [facility]. Referral included face sheet, ED note, H&P, provider notes, case management report, nursing notes, diagnostic imaging, med list, and PT/OT notes.
[2024-04-23 16:19] LABS: Glucometer 76 mg/dL (74-106)
[2024-04-23 21:14] LABS: Glucometer 79 mg/dL (74-106)
[2024-04-24] VITALS (9 sets, daily range): BP systolic 104–123; BP diastolic 61–76; PULSE 68–75; TEMP 36.4–36.7; O2SAT 88–93
[2024-04-24] MEDS: NYSTATIN 500,000 UNIT/5 ML ORAL.SUSP 500000 UNIT PO ×4 (05:26→21:19)
[2024-04-24 05:54] LABS: Basophils Absolute Auto 0.1 10^3/uL (0.0-0.1); Basophils Percent Auto 1.1 % (0.2-2.0); Eosinophils Absolute Auto 0.2 10^3/uL (0.0-0.7); Eosinophils Percent Auto 5.2 % (0.9-7.0); Hematocrit 43.9 % (36.0-48.0); Hemoglobin 14.2 g/dL (12.0-16.0); Lymphocytes Percent Auto 22.5 % (20.5-60.0); Mean Corpuscular HGB Conc 32.3 g/dL (29.9-35.2); Mean Corpuscular Volume 98.9 fL (81.0-99.0); Mean Platelet Volume 9.4 fL (9.5-13.5); Monocytes Absolute Auto 0.3 10^3/uL (0.3-0.8); Monocytes Percent Auto 7.3 % (1.7-12.0); Neutrophils Absolute Auto 2.8 10^3/uL (1.4-6.5); Neutrophils Percent Auto 63.9 % (43.0-75.0); Platelet Count 249 10^3/uL (150-450); Red Blood Count 4.44 10^6/uL (4.20-5.40); Red Cell Distribution Width 14.7 % (11.0-15.0); White Blood Count 4.4 10^3/uL (4.0-11.0)
[2024-04-24 06:17] LABS: Alanine Aminotransferase 12 U/L (14-59); Albumin Globulin Ratio 0.9; Albumin Level 2.8 g/dL (3.4-5.0); Alkaline Phosphatase 69 U/L (46-116); Aspartate Amino Transferase 17 U/L (15-37); BUN Creatinine Ratio 7.6; Bilirubin Total 0.5 mg/dL (0.2-1.0); Calcium 9.3 mg/dL (8.5-10.1); Carbon Dioxide 36.6 mmol/L (21.0-32.0); Chloride 106 mmol/L (98-107); Estimated GFR (African America >60 (>=60 mL/min/1.73m^2); Estimated GFR (Non-African Ame 59 (>=60 mL/min/1.73m^2); Globulin 3.1 g/dL; Glucose 77 mg/dL (74-106); Potassium 4.6 mmol/L (3.5-5.1); Sodium 144 mmol/L (136-145); Total Protein 5.9 g/dL (6.4-8.2)
--- NOTE | 2024-04-24 09:00 | SWNOTE1 ---
BOB had email from Cherise at [facility] and she started precert on 04/23/24 around 4:30pm.
--- NOTE | 2024-04-24 09:08 | PM.PN ---
Progress Note: Subjective Subjective Interval history: Overall she has no complaints today. She has been getting up using her walker with assistance. She has no concerns or complaints at this time. Exam Narrative Exam Narrative: General: Patient is alert, and oriented to person, place and time with normal affect, proper hygiene Skin: no visible rashes, or ulcers Head: atraumatic, acephalic Eyes: PERRLA, no nystagmus present, conjunctiva clear, no scleral icterus Ears: diminished gross auditory acuity Neck: no masses palpated, normal thyroid, no JVD or audible carotid bruits Heart: Normal rate and rhythm, no murmurs/rubs/gallops Lungs: no audible wheezes, crackles and normal breath sounds all lung gaitan Abdomen: Normal audible bowel sounds, no distension, No palpable masses, no organomegaly, no rebound/guarding/ or rigidity Musculoskeletal: no swelling bilateral lower extremities Neuro: CN II-X grossly intact Constitutional Vital Signs, click to edit/add: Last Vital Signs Temp 97.9 F 04/24/24 07:32 Pulse 68 04/24/24 07:32 Resp 18 04/24/24 07:32 BP 117/67 04/24/24 07:32 Pulse Ox 91 L 04/24/24 07:32 O2 Del Method Room Air 04/24/24 07:32 O2 Flow Rate 1.5 04/22/24 13:18 Progress Note: Objective Labs Labs: Short CBC 04/24/24 Range/Units 05:40 WBC 4.4 (4.0-11.0) 10^3/uL Hgb 14.2 (12.0-16.0) g/dL Hct 43.9 (36.0-48.0) % Plt Count 249 (150-450) 10^3/uL BMP 04/24/24 05:40 Sodium 144 Potassium 4.6 Chloride 106 Carbon Dioxide 36.6 H BUN 7.0 Creatinine 0.92 Glucose 77 Calcium 9.3 Liver Function 04/24/24 Range/Units 05:40 Total Bilirubin 0.5 (0.2-1.0) mg/dL AST 17 (15-37) U/L ALT 12 L (14-59) U/L Alkaline Phosphatase 69 (46-116) U/L Albumin 2.8 L (3.4-5.0) g/dL Progress Note: A&P Assessment and Plan (1) SARI (acute kidney injury): Assessment and Plan: resolved with IVF. Cr was 0.89, BUN 8 (2) Hypoglycemia: Assessment and Plan: resolved with addition of ensure. (3) Generalized weakness: Assessment and Plan: PT/OT evaluations suggests skilled for rehab, awaiting precert (4) Protein-calorie malnutrition, severe: Assessment and Plan: continue ENSURE (5) Dysphagia: Assessment and Plan: follow speech recommendations Qualifiers: Dysphagia type: unspecified Qualified Code(s): R13.10 - Dysphagia, unspecified (6) Senile dementia: Plan Patient is a full code Patient is in observation but is awaiting precert for group home facility.
--- NOTE | 2024-04-24 09:14 | REH.PTDLY ---
Physical Therapy Daily Note PT Daily Note/Assess Start: 04/23/24 09:27 Freq: Status: Active Protocol: Document 04/24/24 09:09 PAYAL (Rec: 04/24/24 09:14 PAYAL [id number]) Physical Therapy Daily Note/Assessment Time In 08:41 Time Out 08:53 Subjective No complaints this morning, agreeable to get up into chair for breakfast. Therapeutic Exercise 4 Minutes (minutes) Therapeutic Exercise 0 Units Therapeutic Exercise Seated B LE LAQ, marching and hip abd step outs 10-12x Treatment ea for improved strength. Cues and demo given to pt for understanding. Therapeutic Activity 8 Minutes (minutes) Therapeutic Activity 1 Units Therapeutic Activity Pt performs supine to sit transfers Min A. Sit to stand Comments transfers SBA. Gait training with RW CGA 70 feet with unsteadiness noted. Pt struggles to steer RW in straight path, with several cues needed. Feet appear to slide some once planted even with education paraprofessional socks on, pt reports she does not notice this. Feet roll inward. Cues upon sitting in chair to feel behind her legs and reach back prior for safety. Chair alarm on and call light at hand for safety as pt is a fall risk. Total Therapy 12 Minutes Total Physical 1 Therapy Units Daily Note Summary Pt unaware of directional changes with RW with cues needed. Pt has unsteadiness with gait requiring CGA for safety. Pt would benefit from rehab stay due to fall risk.
[2024-04-24] MEDS: ENSURE ORIGINAL 237 ML BOTTLE PO ×2 (10:02→21:25)
[2024-04-24] MEDS: NYSTATIN 100,000 UNITS/GRAM CREAM 15 GM TUBE 1 APPLIC TOPICAL ×2 (10:03→21:24)
[2024-04-24 12:14] LABS: Glucometer 125 mg/dL (74-106)
--- NOTE | 2024-04-24 13:27 | CM.NOTE ---
Rounds made with Dr. Dawson, pt will discharge to [facility] when medically stable for discharge.
--- NOTE | 2024-04-24 15:02 | SWNOTE1 ---
SW sent updated PT/OT/ST, physician note, labs, vitals, and nursing notes to Cherise at [facility] for precert.
--- NOTE | 2024-04-24 15:02 | SWNOTE1 ---
SW called and spoke to daughter, Lisa, and let her know that precert was still pending to [facility].
[2024-04-24 16:30] LABS: Glucometer 64 mg/dL (74-106)
[2024-04-24 21:22] LABS: Glucometer 207 mg/dL (74-106)
[2024-04-25] VITALS (10 sets, daily range): BP systolic 95–143; BP diastolic 59–83; PULSE 61–75; TEMP 36.5–36.8; O2SAT 86–96; BMI 14.9
[2024-04-25 04:37] LABS: Glucometer 74 mg/dL (74-106)
[2024-04-25] MEDS: NYSTATIN 500,000 UNIT/5 ML ORAL.SUSP 500000 UNIT PO ×2 (05:16→11:36)
[2024-04-25 06:04] LABS: Basophils Absolute Auto 0.1 10^3/uL (0.0-0.1); Basophils Percent Auto 0.8 % (0.2-2.0); Eosinophils Absolute Auto 0.2 10^3/uL (0.0-0.7); Eosinophils Percent Auto 3.5 % (0.9-7.0); Hematocrit 46.1 % (36.0-48.0); Hemoglobin 14.6 g/dL (12.0-16.0); Immature Granulocytes Abs Auto 0.02 10^3/uL (0.00-0.03); Immature Granulocytes Pct Auto 0.3 % (0.0-0.5); Lymphocytes Absolute Auto 0.8 10^3/uL (1.2-3.8); Lymphocytes Percent Auto 13.6 % (20.5-60.0); Mean Corpuscular HGB Conc 31.7 g/dL (29.9-35.2); Mean Corpuscular Hemoglobin 31.9 pg (26.7-34.0); Mean Corpuscular Volume 100.9 fL (81.0-99.0); Mean Platelet Volume 9.4 fL (9.5-13.5); Monocytes Absolute Auto 0.3 10^3/uL (0.3-0.8); Neutrophils Absolute Auto 4.6 10^3/uL (1.4-6.5); Neutrophils Percent Auto 76.8 % (43.0-75.0); Platelet Count 265 10^3/uL (150-450); Red Blood Count 4.57 10^6/uL (4.20-5.40); Red Cell Distribution Width 14.7 % (11.0-15.0)
[2024-04-25 06:34] LABS: Alanine Aminotransferase 12 U/L (14-59); Albumin Globulin Ratio 0.9; Alkaline Phosphatase 77 U/L (46-116); Anion Gap 10.6; Aspartate Amino Transferase 16 U/L (15-37); BUN Creatinine Ratio 8.1; Bilirubin Total 0.4 mg/dL (0.2-1.0); Calcium 9.4 mg/dL (8.5-10.1); Carbon Dioxide 34.6 mmol/L (21.0-32.0); Chloride 103 mmol/L (98-107); Estimated GFR (African America 57 (>=60 mL/min/1.73m^2); Estimated GFR (Non-African Ame 47 (>=60 mL/min/1.73m^2); Globulin 3.3 g/dL; Glucose 80 mg/dL (74-106); Potassium 4.2 mmol/L (3.5-5.1); Sodium 144 mmol/L (136-145); Total Protein 6.3 g/dL (6.4-8.2)
[2024-04-25 08:27] LABS: Glucometer 74 mg/dL (74-106)
[2024-04-25] MEDS: ENSURE ORIGINAL 237 ML BOTTLE PO (08:46)
[2024-04-25] MEDS: NYSTATIN 100,000 UNITS/GRAM CREAM 15 GM TUBE 1 APPLIC TOPICAL (08:47)
--- NOTE | 2024-04-25 09:10 | PM.DS1 ---
DS: Providers Provider Date of admission: 04/21/24 17:30 Primary care physician: Non-Staff Physician, Admitting clinician: Cornelio Ibrahim Consults: 04/21/24 Consult to Dietitian Routine Reason for consultation: weight loss, cachexia 04/21/24 17:50 Consult to Business Coordinator Routine Has provider been notified: No Reason for consult:: Home Health 04/21/24 17:51 Occupational Therapy Eval and Treat Routine Reason for consultation: Weakness Physical Therapy Eval and Treat Routine Reason for consultation: Weakness 04/22/24 11:43 Consult to Dietitian Routine Reason for consultation: PCM Speech Therapy Eval and Treat Routine Reason for consultation: dysphagia, history of radiation and throat cancer Discharging clinician: Kisha Dawson DS: Diagnosis Discharge Diagnosis (1) SARI (acute kidney injury): (2) Hypoglycemia: (3) Generalized weakness: (4) Protein-calorie malnutrition, severe: (5) Dysphagia: Qualifiers: Dysphagia type: unspecified Qualified Code(s): R13.10 - Dysphagia, unspecified (6) Senile dementia: DS: Summary Hospital Course Hospital Course: 78 y/o female to ER after a fall. Patient lives in independent living facility and family found her on the floor. Unknown how long patient was on floor but she wasn't able to get up. To ER and labs showed SARI and hypoglycemia.Family concerned of patient's decreased oral intake and weakness. History of throat cancer and treated with radiation and chemo. Since then problems swallowing and not eating or drinking much. Admitted for treatment. Started IV fluids and labs improved, At the time of discharge renal function normal range with Cr 1.11. WBC's 6.0. Glucose 80. Dietary and speech consult. Dietary recommended ensure and speech recommend ground meat diet with nectar thick fluids. She was continued on this and did well. She will be transferred to [facility] shelter facility for rehab. She may return to the ER with any worsening signs or symptoms. Status at Discharge Functional status at discharge: uses cane/walker Overall status at discharge: patient is progressing back to baseline Time Spent with Patient Time attestation: Total time spent providing and/or coordinating discharge services: Exam Narrative Exam Narrative: General: Patient is alert, and oriented to person, place and time with normal affect, proper hygiene Skin: no visible rashes, or ulcers Head: atraumatic, acephalic Eyes: PERRLA, no nystagmus present, conjunctiva clear, no scleral icterus Ears: diminished gross auditory acuity Neck: no masses palpated, normal thyroid, no JVD or audible carotid bruits Heart: Normal rate and rhythm, no murmurs/rubs/gallops Lungs: no audible wheezes, crackles and normal breath sounds all lung gaitan Abdomen: Normal audible bowel sounds, no distension, No palpable masses, no organomegaly, no rebound/guarding/ or rigidity Musculoskeletal: no swelling bilateral lower extremities Neuro: CN II-X grossly intact Constitutional Vital Signs, click to edit/add: Last Vital Signs Temp 98.3 F 04/25/24 08:10 Pulse 73 04/25/24 08:10 Resp 16 04/25/24 08:10 BP 114/59 04/25/24 08:10 Pulse Ox 92 L 04/25/24 08:54 O2 Del Method Nasal Cannula 04/25/24 08:54 O2 Flow Rate 2 04/25/24 08:54 DS: Data Data Completed and Pending Labs on day of discharge: Labs from last 24 hours 04/25/24 04/25/24 04/25/24 08:26 05:44 04:28 WBC 6.0 RBC 4.57 Hgb 14.6 Hct 46.1 MCV 100.9 H MCH 31.9 MCHC 31.7 RDW 14.7 Plt Count 265 MPV 9.4 L Neut % (Auto) 76.8 H Lymph % (Auto) 13.6 L Dukes % (Auto) 5.0 Eos % (Auto) 3.5 Baso % (Auto) 0.8 Neut # (Auto) 4.6 Lymph # (Auto) 0.8 L Dukes # (Auto) 0.3 Eos # (Auto) 0.2 Baso # (Auto) 0.1 Abs Immat Gran (auto) 0.02 Imm/Tot Granulo (auto) 0.3 Sodium 144 Potassium 4.2 Chloride 103 Carbon Dioxide 34.6 H Anion Gap 10.6 BUN 9.0 Creatinine 1.11 H Est GFR ( Amer) 57 L Est GFR (Non-Af Amer) 47 L BUN/Creatinine Ratio 8.1 Glucose 80 Calcium 9.4 Total Bilirubin 0.4 AST 16 ALT 12 L Alkaline Phosphatase 77 Total Protein 6.3 L Albumin 3.0 L Globulin 3.3 Albumin/Globulin Ratio 0.9 POC Glucose 74 74 04/24/24 04/24/24 04/24/24 21:21 16:29 12:13 WBC RBC Hgb Hct MCV MCH MCHC RDW Plt Count MPV Neut % (Auto) Lymph % (Auto) Dukes % (Auto) Eos % (Auto) Baso % (Auto) Neut # (Auto) Lymph # (Auto) Dukes # (Auto) Eos # (Auto) Baso # (Auto) Abs Immat Gran (auto) Imm/Tot Granulo (auto) Sodium Potassium Chloride Carbon Dioxide Anion Gap BUN Creatinine Est GFR ( Amer) Est GFR (Non-Af Amer) BUN/Creatinine Ratio Glucose Calcium Total Bilirubin AST ALT Alkaline Phosphatase Total Protein Albumin Globulin Albumin/Globulin Ratio POC Glucose 207 H 64 L 125 H Discharge Plan Discharge Disposition: Xfer SNF Discharge Medications: New Ensure Original 0.04-1.05 gram-kcal/mL Liquid 1 ea PO BID Qty: 237 0RF Continued albuterol sulfate 2.5 mg /3 mL (0.083 %) solution for nebulization 2.5 mg continuous nebulization Q6H PRN (Reason: shortness of breath or wheezing) Print Language: Pashto Activity Restrictions/Additional Instructions: Diet is Ground meats with nectar thick Liquids Forms: Portal Instructions Discharge location: [facility]
--- NOTE | 2024-04-25 10:53 | PT.DAILY ---
Physical Therapy Daily Note PT Daily Note/Assess Start: 04/23/24 09:27 Freq: Status: Active Protocol: Document 04/25/24 10:48 SEEMA (Rec: 04/25/24 10:53 SEEMA [id number]) Physical Therapy Daily Note/Assessment Time In/Time Out Time In 10:05 Time Out 10:20 Pain In Pain N/A Pain Out Pain N/A Subjective Subjective Pt supine upon arrival. agrees to PT. Needs to use restroom before amb. Therapeutic Exercise Time Therapeutic Exercise 4 Minutes (minutes) Therapeutic Exercise 0 Units Therapeutic Exercise Treatment Therapeutic Exercise Instructed to complete bilat LE strengthening ex Treatment complete while sitting EOB unsupported 10x ea. Min posterior lean with LAQs but able to self correct after vc. Therapeutic Activity Time Therapeutic Activity 8 Minutes (minutes) Therapeutic Activity 1 Units Therapeutic Activity Treatment Bed Mobility Ability Modified Independent Chair Transfer Standby Assistance Ability Therapeutic Activity Supine>sit Charmaine with increased time needed not no Comments outside support. Sits EOB 4 min to complete bilt LE strengthening ex with Fair+ seated balance - 1x posterior lean/LOB. Pt sit>stand SBA to RW. Amb 15' with RW, SBA. Able to descend to toilet using grab bar SUP. Pt given warm wash cloth to wash her face - set up only. Pt sit>stand using grab bar - able to perform her own pericare without assistance just SBA. Pt amb 100'x 2 with RW, SBA. 1x R lateral LOB with Bri for correction. Returned to room in BS chair. Chair alarm is activated, call light is within reach and nursing notified pt is up on chair. Total Physical Therapy Time Total Therapy 12 Minutes Total Physical 1 Therapy Units Summary Daily Note Summary Improved gait endurance though does demonstrate 1x R lateral LOB needing Bri to correct.
[2024-04-25 11:17] LABS: Glucometer 90 mg/dL (74-106)
--- NOTE | 2024-04-25 11:21 | SWNOTE1 ---
SW received email from Cherise at [facility] and pt is approved to go skilled. SW let case management who is rounding with the doctor know.
--- NOTE | 2024-04-25 12:49 | CM.NOTE ---
Rounds made with Dr. Dawson, pt now on RA this morning. Pt will discharge for skilled therapy when medically stable.
--- NOTE | 2024-04-25 14:16 | SWNOTE1 ---
Pt is approved and going to [facility] skilled today. [facility] does not have transport. BOB called [facility] and they can get her at 2:00. BOB faxed over dc med rec and dc summary to Cherise at [facility]. BOB completed HENS online. BOB took packet to med/surge floor.
== END 2024-04-25 14:11 ==
LOC: ER 16:26 → MS 04-22 11:47
PROVIDERS: Admitting Provider Family Medicine; Emergency Provider Emergency Medicine; Visit Provider Family Medicine
DX: N17.9 Acute kidney failure, unspecified (principal); E16.2 Hypoglycemia, unspecified; S20.219A Contusion of unspecified front wall of thorax, initial encounter; W19.XXXA Unspecified fall, initial encounter; Z91.81 History of falling; Z85.89 Personal history of malignant neoplasm of other organs and systems; Z92.21 Personal history of antineoplastic chemotherapy; Z90.710 Acquired absence of both cervix and uterus; R53.1 Weakness; R13.10 Dysphagia, unspecified; E43 Unspecified severe protein-calorie malnutrition; T66.XXXS Radiation sickness, unspecified, sequela; F03.90 Unspecified dementia, unspecified severity, without behavioral disturbance, psychotic disturbance, mood disturbance, and anxiety; Z68.1 Body mass index [BMI] 19.9 or less, adult
CPT/HCPCS: 36415; 70450; 71045; 71110; 72125; 80053; 81003; 82550; 82948; 85025; 85610; 92526; 92610; 93005; 94761; 97161; 97165; 97530; 97535; 99285; G0378; Q0162